=== PATIENT | male | born 1960 | race Caucasian/White ===

== ENCOUNTER → 2017-02-07 | Outpatient (CLI) | payer OTHER ==
[~2017-02-07] MED LIST: ALL300 PO; AMLO10TA4 PO; ASPI81TA28 PO; FURO-85 PO; HYDR-5688 PO; IBUP600T44 PO; INSDGI SC; INSDGIPEN SC; INSU32MI13 SQ; MRN5 PO; MULT1PAK PO; NVLGIPEN SC; OPTIRAY 320 IV PRN; TRAM-10 PO; [UNRECOGNIZED DRUG - CODE]; [UNRECOGNIZED DRUG - CODE]; [UNRECOGNIZED DRUG - OTHER]; [UNRECOGNIZED DRUG - OTHER]
--- NOTE | 2017-02-07 15:08 | DIAGNOSTIC IMAGING REPORT ---
CHEST CT WITH CONTRAST CT DOSE: 1728.08 mGy.cm HISTORY: Lymphoma HODGKIN LYMPHOMA TECHNIQUE: Multiaxial CT images of the chest were performed following the intravenous administration of contrast. COMPARISON: 07/04/2016 FINDINGS: Unchanged exam. Lungs remain clear. Hilar and mediastinal regions are negative for significant adenopathy. Left axillary adenopathy is stable and nonprogressive. There is no evidence for new interval or progressive harshad process within the high left axilla. The right axilla is clear. Osseous structures are negative for an acute bony abnormality. There is no lytic or blastic process. IMPRESSION: 1. Generally stable CT chest compared to the prior exam.. 2. Left axillary adenopathy is unchanged with no evidence for new interval or progressive process. 3. The lungs remain clear. No significant mediastinal or hilar adenopathy. Electronically signed by: Franklyn Oconnor M.D. 02/07/2017 3:07 PM Dictated Date/Time: 02/07/2017 3:02 PM
--- NOTE | 2017-02-07 15:14 | DIAGNOSTIC IMAGING REPORT ---
CT OF THE ABDOMEN AND PELVIS WITH CONTRAST CLINICAL HISTORY: Lymphoma. COMPARISON STUDY: CT of the abdomen and pelvis July 04, 2016 TECHNIQUE: Following IV administration of 93 mL of Optiray-320, axial images of the abdomen and pelvis were obtained from the lung bases to the proximal femurs. Images were reviewed in the axial, sagittal, and coronal planes. IV contrast was administered without complication. Oral contrast was administered. FINDINGS: The chest will be reported separately. No hepatic lesions are identified on this exam. The size of the spleen is normal. The adrenal glands and kidneys are unremarkable. Mild bilateral perinephric infiltration is unchanged. A few right renal calculi measure up to 5 mm. There are no ureteral calculi. There is no hydronephrosis. A few mildly enlarged peripancreatic/aortocaval lymph nodes are similar to exam of July 04, 2016. These measure up to 1.2 cm in short axis diameter. No additional enlarged lymph nodes are identified within the abdomen or the pelvis. There is no evidence for a bowel obstruction. No suspicious osseous lesions are present. There is no ascites. IMPRESSION: 1. No change since CT of July 04, 2016. Stable mild peripancreatic/aortocaval lymphadenopathy. No evidence of progressive lymphadenopathy within the abdomen or pelvis. 2. Right sided nephrolithiasis. Electronically signed by: Warren Castaneda M.D. 02/07/2017 3:13 PM Dictated Date/Time: 02/07/2017 3:05 PM
== END | disposition home or self-care (01) ==
LOC: C.CTS 13:02
PROVIDERS: ATTEND Nurse Practitioner
DX: C81.70 Other Hodgkin lymphoma, unspecified site (principal); N20.0 Calculus of kidney

== ENCOUNTER → 2017-05-23 | Day surgery (SDC) | payer OTHER ==
[2017-05-11 14:35] VITALS: BMI 19.0
[~2017-05-23] VITALS: Ht 198.1 cm; Wt 123.0 kg
[~2017-05-23] MED LIST changes: +ATROPINE SULFATE 0.1 MG/ML 5ML SYR IV PRN; +CEFAZOLIN 2000 MG/60 ML D5W IV SCH; +CEFAZOLIN 3000 MG/65 ML D5W IV SCH; +EpHEDrine SULFATE INJ 50 MG/ML AMP IV PRN; +FENTANYL CITRATE INJ 50 MCG/1 ML 2 ML VIAL IV PRN; +FENTANYL CITRATE INJ 50 MCG/1 ML 2 ML VIAL ONE; +FLUMAZENIL 0.1 MG/1 ML 10 ML VIAL IV PRN; -FURO-85 PO; +HYDROCODONE/ACETAMOPHEN 5/325MG TAB PO PRN; +HYDROmorphone INJ 2 MG/ML SYR/VIAL IV PRN; -INSDGIPEN SC; -INSU32MI13 SQ; +LABETALOL HCL IV 5 MG/ML 20ML IV PRN; +LACTATED RINGER'S 1000ML 1,000 ML IV SCH; +LIDOCAINE HCL 1% 20 ML VIAL ONE; +LIDOCAINE HCL 2% 2 ML VIAL (20MG/ML) ONE; +MEPERIDINE HCL 25 MG/ML CARP IV PRN; +MIDAZOLAM HCL 1 MG/ML 2ML VIAL ONE; -MRN5 PO; +NALOXONE HCL 0.4 MG/1 ML VIAL/CARP IV PRN; +ONDANSETRON INJ 2 MG/ML 2 ML VIAL IV PRN; +ONDANSETRON INJ 2 MG/ML 2 ML VIAL ONE; -OPTIRAY 320 IV PRN; +PHENYLEPHRINE 100MCG/ML 5ML SYR IV PRN; +PROPOFOL IV EMULSION 10 MG/ML 20 ML VIAL IV ONE; +SODIUM CHLORIDE 0.9% 1000ML 1,000 ML IV SCH; -[UNRECOGNIZED DRUG - CODE]; -[UNRECOGNIZED DRUG - CODE]; -[UNRECOGNIZED DRUG - OTHER]; -[UNRECOGNIZED DRUG - OTHER]
[2017-05-23 06:39] VITALS: Ht 198.1 cm; Wt 123.0 kg
--- NOTE | 2017-05-23 06:59 | History & Physical Bridge - SC ---
H&P Re-Evaluation Bridge Note: I have examined the patient, reviewed the History & Physical and in the interval since the performance of the History & Physical I have noted the following changes of clinical significance: No changes noted
[2017-05-23 07:26] VITALS: TEMP 36.3
--- NOTE | 2017-05-23 07:32 | Discharge Instructions-SurgCtr ---
Discharge Instructions Date of Service May 23, 2017. Visit Reason for Visit: Hodgkin's Discharge Discharge Diagnosis / Problem: port removal Discharge Goals Goal(s): Decrease discomfort, Improve function, Improve disease control Medications Stopped Medications Name(s): Aspirin stopped 7 days ago Activity Recommendations Activity Limitations: as noted below Lifting Limitations: no more than 25 pounds Exercise/Sports Limitations: until after follow-up appointment May Resume Sexual Activity: when tolerated Shower/Bathe: tomorrow Driving or Machine Use: resume 1 day after discharge SPECIAL CARE INSTRUCTIONS: * Cover incisions and change daily for comfort/drainage. * May use ibuprofen for pain as tolerated. * Expect some swelling and bruising. Call your doctor if: * Temperature above 101 degrees * Pain not relieved by pain medicine ordered * There is increased drainage or redness from any incision * You have any unanswered questions or concerns [phone]. FOLLOW UP VISIT: If not already scheduled, please call the office for a follow-up visit. for 2 weeks- suture removal OFFICE PHONE NUMBER: Dr. Kaplan Office Anesthesia . Post Anesthesia Instructions: If you have had General Anesthesia or IV Sedation: * Do not drive today. * Resume driving when surgeon permits. * Do not make important decisions or sign legal documents today. * Call surgeon for: 1. Temperature elevations greater than 101 degrees F. 2. Uncontrollable pain. 3. Excessive bleeding. 4. Persistent nausea and vomiting. 5. Medication intolerance (nausea, vomiting or rash). * For nausea and vomiting use only clear liquids such as: tea, soda, bouillon until nausea subsides, then gradually increase diet as tolerated. * If you have any concerns or questions, call your surgeon's office. If physician is unavailable and it is an emergency, call 911 or go to the nearest emergency room. . Diet Recommendations Home Diet: resume previous diet Procedures Procedures Performed: Infusaport Removal Pending Studies Studies pending at discharge: no Medical Emergencies . Who to Call and When: Medical Emergencies: If at any time you feel your situation is an emergency, please call 911 immediately. . Non-Emergent Contact Non-Emergency issues call your: Primary Care Provider, Surgeon . . "Provider Documentation" section prepared by Segun Kaplan. .
--- NOTE | 2017-05-23 07:33 | [facility] Operative Report ---
Operative Report Operative Date May 23, 2017. Pre-Operative Diagnosis A-Port for Hodgenkins lyphoma Post-Operative Diagnosis same as pre-op Procedure(s) Performed Infusaport Removal Surgeon Dr. Kaplan Surgical Aide Surgeon(s) none Estimated Blood Loss 5ml Findings port Lt chest Specimens A. Explanted A-Port Anesthesia local/ sedation Complication(s) None Disposition Recovery Room / PACU Description of Procedure Patient was brought in the operating room placed in the operating room table in supine position. His left upper chest was prepped and draped in usual fashion. 1% plain lidocaine was used to anesthetize skin and subcutaneous tissue. Scissors was made through previous scar carried dissection down identifying the port. Port was dissected from surrounding tissue and then the catheter and port removed. Tunnel was oversewn using 2-0 chromic catgut suture. Deep tissues reapproximated using 2-0 chromic suture. Skin was reapproximated using interrupted 4-0 nylon. A dressing was applied and patient taken to the recovery area in stable condition. I attest to the content of the Intraoperative Record and any orders documented therein. Any exceptions are noted below.
--- NOTE | 2017-05-23 07:55 | Anesthesia Progress Nt - [facility] ---
Anesthesia Post Op Note Date & Time May 23, 2017 at 07:55 Vital Signs Pain Intensity: 0 Vital Signs Past 12 Hours Date Time Temp Pulse Resp B/P (MAP) Pulse Ox O2 Delivery O2 Flow Rate FiO2 05/23/17 07:26 36.3 61 16 107/57 (74) 95 Room Air 05/23/17 06:26 36.8 68 16 158/88 (111) 96 Room Air Notes Mental Status: alert / awake / arousable, participated in evaluation Pt Amnestic to Procedure: Yes Nausea / Vomiting: adequately controlled Pain: adequately controlled Airway Patency, RR, SpO2: stable & adequate BP & HR: stable & adequate Hydration State: stable & adequate Anesthetic Complications: no major complications apparent
[2017-05-23 08:01] VITALS: BP 121/71; PULSE 62; O2SAT 95
== END | disposition home or self-care (01) ==
LOC: X.SURG 06:12
PROVIDERS: ATTEND Surgery
DX: Z95.828 Presence of other vascular implants and grafts (principal); Z85.71 Personal history of Hodgkin lymphoma; Z79.82 Long term (current) use of aspirin; M06.9 Rheumatoid arthritis, unspecified; G62.0 Drug-induced polyneuropathy; N18.3 Chronic kidney disease, stage 3 (moderate); E78.5 Hyperlipidemia, unspecified; I12.9 Hypertensive chronic kidney disease with stage 1 through stage 4 chronic kidney disease, or unspecified chronic kidney disease; E11.9 Type 2 diabetes mellitus without complications; N20.0 Calculus of kidney; Z80.0 Family history of malignant neoplasm of digestive organs; Z83.3 Family history of diabetes mellitus; Z84.1 Family history of disorders of kidney and ureter; Z82.49 Family history of ischemic heart disease and other diseases of the circulatory system; F17.200 Nicotine dependence, unspecified, uncomplicated; Z79.4 Long term (current) use of insulin; Z87.442 Personal history of urinary calculi

== ENCOUNTER → 2017-08-31 | Outpatient (CLI) | payer OTHER ==
[~2017-08-31] MED LIST changes: -ATROPINE SULFATE 0.1 MG/ML 5ML SYR IV PRN; -CEFAZOLIN 2000 MG/60 ML D5W IV SCH; -CEFAZOLIN 3000 MG/65 ML D5W IV SCH; -EpHEDrine SULFATE INJ 50 MG/ML AMP IV PRN; -FENTANYL CITRATE INJ 50 MCG/1 ML 2 ML VIAL IV PRN; -FENTANYL CITRATE INJ 50 MCG/1 ML 2 ML VIAL ONE; -FLUMAZENIL 0.1 MG/1 ML 10 ML VIAL IV PRN; -HYDROCODONE/ACETAMOPHEN 5/325MG TAB PO PRN; -HYDROmorphone INJ 2 MG/ML SYR/VIAL IV PRN; -LABETALOL HCL IV 5 MG/ML 20ML IV PRN; -LACTATED RINGER'S 1000ML 1,000 ML IV SCH; -LIDOCAINE HCL 1% 20 ML VIAL ONE; -LIDOCAINE HCL 2% 2 ML VIAL (20MG/ML) ONE; -MEPERIDINE HCL 25 MG/ML CARP IV PRN; -MIDAZOLAM HCL 1 MG/ML 2ML VIAL ONE; -NALOXONE HCL 0.4 MG/1 ML VIAL/CARP IV PRN; -ONDANSETRON INJ 2 MG/ML 2 ML VIAL IV PRN; -ONDANSETRON INJ 2 MG/ML 2 ML VIAL ONE; +OPTIRAY 320 IV PRN; -PHENYLEPHRINE 100MCG/ML 5ML SYR IV PRN; -PROPOFOL IV EMULSION 10 MG/ML 20 ML VIAL IV ONE; -SODIUM CHLORIDE 0.9% 1000ML 1,000 ML IV SCH
[2017-08-31 16:13] LABS: ISTAT CREATININE 1.2 mg/dl (0.6-1.3); ISTAT HEMOGLOBIN 13.9 g/dl (14.0-18.0); ISTAT IONIZED CALCIUM 1.27 mmol/l (1.12-1.32)
--- NOTE | 2017-08-31 16:35 | DIAGNOSTIC IMAGING REPORT ---
CT OF THE CHEST WITH IV CONTRAST CLINICAL HISTORY: Hodgkin's lymphoma COMPARISON STUDY: Chest CT January 30, 2017. TECHNIQUE: Following IV administration of 119 mL of Optiray-320, helical axial images of the chest were obtained. Sagittal and coronal reconstructions were viewed as well as maximal intensity projections on an independent 3-D workstation. A dose lowering technique was utilized adhering to the principles of ALARA. CT DOSE: 2030.52 mGycm FINDINGS: Several mildly enlarged left axillary lymph nodes are similar to exam of February 07, 2017. Calcification is noted within several these lymph nodes. The largest is a hypodense 1.7 cm round lymph node shown on axial image 78 of 346. The size of the heart is normal. There is no pericardial effusion. This extensive coronary artery calcification. Mild dilatation of the ascending aorta, measuring 4 cm is unchanged. There is no thoracic aortic dissection. Elevation of the right hemidiaphragm is unchanged. There are no suspicious pulmonary nodules. No suspicious osseous lesions are shown within the bony thorax. The abdomen and pelvis will be reported separately. IMPRESSION: 1. No change in mildly enlarged left axillary lymph nodes since CT of February 07, 2017. This likely reflects treated lymphoma. 2. No progressive lymphadenopathy within the chest. 3. No acute intrathoracic findings. 4. Extensive coronary artery calcification. Mild dilatation of the ascending aorta without thoracic aortic dissection. Electronically signed by: Warren Castaneda M.D. 08/31/2017 4:34 PM Dictated Date/Time: 08/31/2017 4:24 PM
--- NOTE | 2017-08-31 17:04 | DIAGNOSTIC IMAGING REPORT ---
CT OF THE ABDOMEN AND PELVIS WITH CONTRAST CLINICAL HISTORY: Lymphoma. COMPARISON STUDY: CT of the abdomen and pelvis January 30, 2017. TECHNIQUE: Following IV administration of 119 mL of Optiray-320, axial images of the abdomen and pelvis were obtained from the lung bases to the proximal femurs. Images were reviewed in the axial, sagittal, and coronal planes. IV contrast was administered without complication. A dose lowering technique was utilized adhering to the principles of ALARA. Oral contrast was administered. FINDINGS: The chest CT will be reported separately. The liver, spleen, adrenal glands and left kidney are normal. There is a 5 mm right renal calculus. There is no hydronephrosis. There are no ureteral calculi. There is no peripancreatic infiltration. No biliary or pancreatic ductal dilatation is present. There has been slight decrease in size of mildly enlarged peripancreatic/aortocaval lymph node since exam of January 30, 2017. An index aortocaval lymph node shown image 151 of 566 measures 1.1 cm in short axis diameter. It previously measured 1.2 cm. There is no pelvic lymphadenopathy. No suspicious osseous lesion is identified within visualized skeletal structures. There is no bowel wall thickening. The appendix is normal. There is extensive atherosclerotic plaque of the abdominal aorta. There is no interval dilatation. IMPRESSION: 1. Slight decrease in size of mildly enlarged upper abdominal lymph nodes since CT of February 07, 2017. No progressive lymphadenopathy within the abdomen or pelvis. 2. 5 mm right renal calculus. No ureteral calculi. Electronically signed by: Warren Castaneda M.D. 08/31/2017 5:02 PM Dictated Date/Time: 08/31/2017 4:51 PM
== END | disposition home or self-care (01) ==
LOC: C.CTS 13:35
PROVIDERS: ATTEND Internal Medicine Hematology & Oncology
DX: C81.70 Other Hodgkin lymphoma, unspecified site (principal)

== ENCOUNTER → 2018-02-16 | Day surgery (SDC) | payer OTHER ==
[2017-12-21 08:07] VITALS: BMI 31.0
[~2018-02-16] VITALS: Ht 198.1 cm; Wt 124.5 kg
[~2018-02-16] MED LIST changes: -ALL300 PO; +ALLO300T2 PO; +AMLO-114 PO; -AMLO10TA4 PO; -HYDR-5688 PO; +LIDOCAINE HCL 2% 2 ML VIAL (20MG/ML) ONE; +MIDAZOLAM HCL 1 MG/ML 2ML VIAL ONE; +NVLG SC; -NVLGIPEN SC; -OPTIRAY 320 IV PRN; +PROPOFOL IV EMULSION 10 MG/ML 20 ML VIAL IV ONE; +SODIUM CHLORIDE 0.9% 500ML 500 ML IV ONE; -TRAM-10 PO
[2018-02-16 11:39] VITALS: Ht 198.1 cm; Wt 124.5 kg
--- NOTE | 2018-02-16 12:36 | Endo History and Physical ---
History & Physical Date of Service: Feb 16, 2018. Chief Complaint: SCREENING Referring Physician: DR. MARTINEZ ONOCOLOGIST DR. PRINCE History of Present Illness 57 yo CM who presents for screening colonoscopy. Past Medical History Diabetes, Arthritis, High Cholesterol, Sleep Apnea, Hypertension, Kidney Disease , Other Past Surgical History Hx Cardiac Surgery: No Hx Internal Defibrillator: No Hx Pacemaker: No Hx Abdominal Surgery: No Hx of Implantable Prosthesis: No Hx Post-Op Nausea and Vomiting: No Hx Cancer Surgery: Yes (PORT INSERTION AND REMOVAL, LYMPH NODE BIOPSY) Hx Thoracic Surgery: No Hx Orthopedic: Yes (LT KNEE SCOPE X3) Hx Urinary Tract Surgery: Yes (LITHOTRIPSY) Family History Colon CA Social History Smoking Status: Former Smoker Hx Substance Use: Yes (OCCASIONAL MARIJUANA) Hx Alcohol Use: Yes (QUIT 25 YEARS AGO/ALCOHOLISM) Allergies Coded Allergies: Oxycodone (Verified Adverse Reaction, Intermediate, agitation, 02/16/18) Current Medications Reported Home Medications Medications Dose Route/Sig Max Daily Dose Days Date Category Dose Instructions Novolog (Insulin Aspart) 100 Units/Ml Inj 1 Dose SC TIDM 12/21/17 Reported PER SLIDING SCALE Norvasc (Amlodipine Besylate) 10 Mg Tab 10 Mg PO QPM 12/21/17 Reported Zyloprim (Allopurinol) 300 Mg Tab 0.5 Tab PO QAM 12/21/17 Reported Lantus (Insulin Glargine) 100 Unit/Ml Inj 25 Units SC BID 05/11/17 Reported Motrin (Ibuprofen) 600 Mg Tab 600 Mg PO DAILY PRN 05/11/17 Reported PRN Aspirin Ec (Aspirin) 81 Mg Tab 81 Mg PO DAILY 01/01/16 Reported Vital Signs Weight (Kilograms): 124.55 Height (Feet): 6 Height (Inches): 6 Date Time Temp Pulse Resp B/P (MAP) Pulse Ox O2 Delivery O2 Flow Rate FiO2 02/16/18 12:05 36.4 73 18 156/75 (102) 95 Room Air Physical Exam General Appearance: WD/WN, no apparent distress Respiratory/Chest: Auscultation: breath sounds normal Cardiovascular: Heart Auscultation: RRR Abdomen: Bowel Sounds: normal Inspection & Palpation: soft, non-distended, no tenderness, guarding & rebound Assessment and Plan Assessment: 57 yo CM who presents for screening colonoscopy. Plan: Proceed with colonoscopy.
--- NOTE | 2018-02-16 14:33 | GI REPORT ---
Procedure Date: 02/16/2018 12:30 PM Procedure: Colonoscopy Indications: Screening for colorectal malignant neoplasm Medicines: Monitored Anesthesia Care Complications: No immediate complications. Estimated Blood Loss: Estimated blood loss: none. Procedure: Pre-Anesthesia Assessment: - Prior to the procedure, a History and Physical was performed, and patient medications and allergies were reviewed. The patient's tolerance of previous anesthesia was also reviewed. The risks and benefits of the procedure and the sedation options and risks were discussed with the patient. All questions were answered, and informed consent was obtained. Prior Anticoagulants: The patient has taken aspirin, last dose was 1 day prior to procedure. ASA Grade Assessment: III - A patient with severe systemic disease. After reviewing the risks and benefits, the patient was deemed in satisfactory condition to undergo the procedure. After I obtained informed consent, the scope was passed under direct vision. Throughout the procedure, the patient's blood pressure, pulse, and oxygen saturations were monitored continuously. The Scope was introduced through the anus and advanced to the terminal ileum. The colonoscopy was performed without difficulty. The patient tolerated the procedure well. The quality of the bowel preparation was good. The terminal ileum, ileocecal valve, appendiceal orifice, and rectum were photographed. Findings: The perianal and digital rectal examinations were normal. A 5 mm polyp was found in the ascending colon. The polyp was sessile. The polyp was removed with a hot snare. Resection and retrieval were complete. Non-bleeding internal hemorrhoids were found during retroflexion. The hemorrhoids were small. Impression: - One 5 mm polyp in the ascending colon, removed with a hot snare. Resected and retrieved. - Non-bleeding internal hemorrhoids. Recommendation: - Resume previous diet. - Continue present medications. - Repeat colonoscopy for surveillance based on pathology results. - Return to primary care physician as previously scheduled. Feliberto Fisher DO 02/16/2018 2:32:30 PM This report has been signed electronically. Note Initiated On: 02/16/2018 12:30 PM I attest to the content of the Intraoperative Record and orders documented therein, exceptions below
[2018-02-16 15:05] VITALS: BP 126/74; PULSE 77; O2SAT 93
--- NOTE | 2018-02-16 15:09 | Anesthesiology Progress Note ---
Anesthesia Post Op Note Date & Time Feb 16, 2018 at 15:09 Vital Signs Pain Intensity: 0 Vital Signs Past 12 Hours Date Time Temp Pulse Resp B/P (MAP) Pulse Ox O2 Delivery O2 Flow Rate FiO2 02/16/18 15:05 77 20 126/74 (91) 93 Room Air 02/16/18 14:49 72 18 121/72 (88) 96 Room Air 02/16/18 14:36 71 16 109/63 (78) 95 Room Air 02/16/18 12:05 36.4 73 18 156/75 (102) 95 Room Air Notes Mental Status: alert / awake / arousable, participated in evaluation Pt Amnestic to Procedure: Yes Nausea / Vomiting: adequately controlled Pain: adequately controlled Airway Patency, RR, SpO2: stable & adequate BP & HR: stable & adequate Hydration State: stable & adequate Anesthetic Complications: no major complications apparent
--- NOTE | 2018-02-16 15:11 | Discharge Instructions ---
Endoscopy Patient Instructions Date / Procedure(s) Performed Feb 16, 2018. Colonoscopy Allergy Information Coded Allergies: Oxycodone (Verified Adverse Reaction, Intermediate, agitation, 02/16/18) Discharge Date / Findings Feb 16, 2018. Colon polyp Diverticulosis Internal hemorrhoids Medication Instructions Stopped Medication(s): 1/2 INSULIN OK to resume all medications today as prescribed Reported Home Medications Medications Dose Route/Sig Max Daily Dose Days Date Category Dose Instructions Novolog (Insulin Aspart) 100 Units/Ml Inj 1 Dose SC TIDM 12/21/17 Reported PER SLIDING SCALE Norvasc (Amlodipine Besylate) 10 Mg Tab 10 Mg PO QPM 12/21/17 Reported Zyloprim (Allopurinol) 300 Mg Tab 0.5 Tab PO QAM 12/21/17 Reported Lantus (Insulin Glargine) 100 Unit/Ml Inj 25 Units SC BID 05/11/17 Reported Motrin (Ibuprofen) 600 Mg Tab 600 Mg PO DAILY PRN 05/11/17 Reported PRN Aspirin Ec (Aspirin) 81 Mg Tab 81 Mg PO DAILY 01/01/16 Reported Provider Instructions Activity Restrictions - No exercising or heavy lifting for 24 hours. - Do not drink alcohol the day of the procedure. - Do not drive a car or operate machinery until the day after the procedure. - Do not make any important decisions or sign important papers in 24 hours after the procedure. Following Day: - Return to full activity which may include returning to work/school. Diet Start your diet with liquids and light foods (jello, soup, juice, toast). Then eat your usual diet if not nauseated. Treatment For Common After Affects For mild abdominal pain, bloating, or excessive gas: - Rest - Eat lightly - Lie on right side Follow-Up Information Follow-up with DR. MARTINEZ ONOCOLOGIST DR. PRINCE as scheduled Anesthesia Information What You Should Know You have had a procedure that required some medicine to reduce anxiety and discomfort. This treatment is called moderate sedation. After receiving the treatment, you may be sleepy, but you will be able to breathe on your own. The effects of the treatment may last for several hours. Follow these instructions along with Activity/Diet recommendations noted above: * Do NOT do anything where dizziness or clumsiness would be dangerous. * Rest quietly at home today, then you can be up and about tomorrow. * Have a responsible person stay with you the rest of today. * You may have had an I.V. today. If so, you may take the dressing off later today. Recommendations Call your doctor if: * Trouble breathing * Continuous vomiting for more than 24 hours * Temperature above 101 degrees * Severe abdominal pain or bloating * Pain not relieved by pain medicine ordered * There is increased drainage or redness from any incision * A large amount of rectal bleeding greater than 2-3 tablespoons. (If you had a polyp/s removed or have hemorrhoids, a small amount of blood - from the rectum is to be expected.) * You have any unanswered questions or concerns. IN THE EVENT OF A SERIOUS EMERGENCY, GO TO THE NEAREST EMERGENCY ROOM Your discharge instructions were prepared by provider Feliberto Fisher. Patient Instructions Signature Page Jonnathan Richardson Patient (or Guardian) Signature/Date: I have read and understand the instructions given to me by my caregivers. Caregiver/RN/Doctor Signature/Date: The above-named patient and/or guardian has received patient instructions on this date. + Original Patient Signature Page (only) stays with chart. Please make copy for patient.
== END | disposition home or self-care (01) ==
LOC: EDSTATUS 09:45 → C.GI 11:09
PROVIDERS: ATTEND Internal Medicine
DX: Z12.11 Encounter for screening for malignant neoplasm of colon (principal); D12.2 Benign neoplasm of ascending colon; K64.8 Other hemorrhoids; I10 Essential (primary) hypertension; E11.9 Type 2 diabetes mellitus without complications; Z87.891 Personal history of nicotine dependence; Z98.890 Other specified postprocedural states; Z79.4 Long term (current) use of insulin; Z79.82 Long term (current) use of aspirin; Z88.6 Allergy status to analgesic agent; Z85.71 Personal history of Hodgkin lymphoma; Z80.0 Family history of malignant neoplasm of digestive organs

== ENCOUNTER 2022-07-07 18:56 | Inpatient (IN) ==
--- NOTE | 2022-07-07 19:32 | History & Physical Report ---
Date of Service July 07, 2022 Assessment & Plan (1) Diabetic foot ulcer: Plan: Betadine or dry bandage to cover the wound. Ambulate as tolerated in post op shoe. (2) Acute osteomyelitis involving ankle and foot: Plan: Had xrays at clinic with acute findings of osteomyelitis. NPO after midnight for partial hallux amputation tomorrow morning (07/08/22). Spoke with houseman and will know start time tomorrow morning. Recommend Labs, ESR, CRP, CBC, CMP, blood cultures. IV antibiotics per medicine, or recommend ( Vanc and Zosamra). Thank you for this consultation. Office # [phone]. (3) Cellulitis and abscess of right leg: Plan: . History of Present Illness Chief Complaint: Diabetic foot ulceration Primary Care Provider: Valdemar Fabian DO Patient presented to my clinic today with worsening ulceration to his right great toe. States that the ulceration started about a month ago. States he was treating the ulcer himself. States his blood sugars have been over 200 the last two days. States within the past day, the ulcer is worse. Reports redness ascending up his right foot. Reports feeling tired and low grade fever, but denies nausea, vomiting, chills. In clinic today, the ulcer had purulent drainage and probed to bone. On xray, acute findings of osteomyelitis were noted with cortical lysis and resorption of bone at the level of hallux IPJ. Advised the patient to report to the emergency department for labs (CBC, CMP, ESR, CRP, blood cultures), IV antibiotics, and discussed partial hallux amputation vs IV antibiotics. Patient stated he would want surgical intervention to address this diabetic ulceration with underlying osteomyelitis. Allergies Allergy/AdvReac Type Severity Reaction Status Date / Time acetaminophen [From Percocet] Allergy Unknown Verified 03/29/22 08:58 oxycodone AdvReac Intermediate agitation Verified 03/29/22 08:58 Home Medications Medication Instructions Recorded Confirmed Type levothyroxine 50 mcg capsule 50 mcg PO DAILY #90 caps 10/14/19 03/29/22 Rx amlodipine 10 mg tablet 10 mg PO DAILY 01/14/20 03/29/22 History aspirin 81 mg tablet,delayed 81 mg PO DAILY 01/14/20 03/29/22 History release (Adult Low Dose Aspirin) atorvastatin 40 mg tablet 40 mg PO DAILY 01/14/20 03/29/22 History insulin aspart U-100 100 unit/mL 5 units subcut TID 01/14/20 03/29/22 History (3 mL) subcutaneous pen (Novolog Flexpen U-100 Insulin aspart) insulin glargine 100 unit/mL 100 units subcut DAILY 01/14/20 03/29/22 History subcutaneous solution (Lantus U-100 Insulin) coenzyme Q10 100 mg capsule 100 mg PO DAILY 10/05/21 03/29/22 History (CoQ-10) lisinopril 20 mg tablet 20 mg PO DAILY 10/05/21 03/29/22 History metoprolol tartrate 75 mg tablet 75 mg PO BID 10/05/21 03/29/22 History ftnzgnmhbbpv-vxnhzbv-ydyat acid tab PO 10/05/21 03/29/22 History 500 mcg-vitamin K 10 mcg tablet hydrochlorothiazide 25 mg tablet 25 mg PO DAILY #90 tabs 01/13/22 03/29/22 Rx cholecalciferol (vitamin D3) 50 50 mcg PO DAILY #90 caps 07/05/22 Rx mcg (2,000 unit) capsule Past Med/Surg History Medical History Accelerated hypertension Calcium kidney stone Diabetes mellitus, type 2 Hodgkin lymphoma Family History Other Coronary heart disease Social History Smoking Status: Former smoker Tobacco Type: Cigarettes Preferred Language: Croatian marital status: Current Living Situation: Spouse Feels Safe at Home: Yes Review of Systems All systems reviewed & are unremarkable except as noted in HPI & below as per Subjective / HPI Physical Exam Physical Exam: Ulceration noted to right plantar medial hallux IPJ. Purulent drainage noted. Probes to bone. Ascending cellulitis to the level of the ankle. Constitutional: WD/WN, vitals as above Eyes: PERRL, conjunctivae normal, anicteric sclerae ENMT: external ear and nose normal, oropharynx normal Neck: trachea midline, no thyromegaly Respiratory: normal respiratory effort, lungs clear to auscultation Cardiovascular: Rate/Rhythm: regular rate and regular rhythm Vessels: posterior tibial pulses present (diminished) and dorsalis pedis pulses present (diminished) Gastrointestinal (Abdomen): Inspection/Auscultation: abdomen normal to inspection Musculoskeletal: Extremities: extremities normal to inspection and strength 5/5 throughout Skin: + ulcer Neurologic: Motor/Sensory: + sensory deficit Psychiatric: A+Ox3, euthymic affect
[2022-07-07] MEDS ORDERED: PIPERACILLIN/TAZOBACTAM 4.5 GM/120 ML BAG IV ONE (20:59)
[2022-07-07] MEDS ORDERED: VANCOMYCIN HCL 2,500 MG in SODIUM CHLORIDE 0.9% 500 ML IV ONE (20:59)
[2022-07-07] MEDS ORDERED: VANCOMYCIN CONSULT ACTIVE PRN (20:59)
--- NOTE | 2022-07-07 21:17 | Emergency Department Note ---
Impression & Plan Diabetic infection of right foot, Osteomyelitis ED Provider Note Provider: Gilson Oliveira MD DATE OF SERVICE: 07/07/2022 CHIEF COMPLAINT: Right foot infection HISTORY OF PRESENT ILLNESS: Patient is a 61-year-old gentleman diabetic referred by podiatry today to worsening infection of his right foot. Centered around the right great toe. Developing over the last several days with prior history. States 2 out of 10 pain. States maybe took a dose of Keflex this morning. Denies fever today but several days ago. Patient states a distant history of chemotherapy. Podiatry recommended command for operative management tomorrow and IV antibiotics. REVIEW OF SYSTEMS: A total of 10 review of systems was obtained and negative except as stated above in the HPI. PAST MEDICAL HISTORY: As noted above MEDICATIONS: Reviewed home medication list SOCIAL HISTORY: Former smoker PHYSICAL EXAM: GENERAL: alert and oriented in no acute distress on stretcher, large delgadillo Head: normocephalic and atraumatic EYES: No injection, discharge or icterus. NECK: Trachea midline. Supple. ENT: Mucous membranes pink and moist. LUNGS: Airway patent. No retractions or work of breathing. HEART: Regular rate and rhythm. ABDOMEN: Soft nondistended SKIN: Acyanotic, warm, dry with erythema of the right foot as below. EXTREMITIES: Decree sensation below the knees bilaterally. There is erythema swelling and tenderness of the right great toe extending over the distal right foot without significant bullae or crepitus noted. NEUROLOGICAL: No aphasia. No facial droop or slurred speech. Decree sensation below the legs he states is at baseline Patient's laboratory studies reviewed. Differential includes Cellulitis, abscess, MRSA infection, DVT, necrotizing fasciitis, dermatitis, drug eruption, allergic reaction, as well as other pathologies. IMPRESSION/MEDICAL DECISION MAKING: Patient referred by podiatry who saw him in the emergency department and recommended admission for OR case tomorrow for debridement. X-ray reportedly as an outpatient showed osteomyelitis. Blood cultures and labs ordered. Given vancomycin and Zosyn for broad coverage given his history of diabetes. Does not appear to be necrotizing fasciitis and I doubt sepsis at this point. Patient was somewhat frustrated in the emergency department given the length of the wait due to the volume and acuity this evening in the ED. here he is elevated and creatinine is elevated compared to previous available from December of this year. Hospitalist contacted for admission. DIAGNOSIS: Right diabetic foot cellulitis and osteomyelitis DISPOSITION: Being evaluated by the hospitalist Past Med/Surg History Medical History Accelerated hypertension Calcium kidney stone Diabetes mellitus, type 2 Hodgkin lymphoma Family History Other Coronary heart disease Social History Smoking Status: Former smoker Tobacco Type: Cigarettes Preferred Language: [place] Zealander marital status: Current Living Situation: Spouse Feels Safe at Home: Yes Allergies Allergies Allergy/AdvReac Type Severity Reaction Status Date / Time acetaminophen [From Percocet] Allergy Unknown Verified 07/07/22 22:51 oxycodone AdvReac Intermediate agitation Verified 07/07/22 22:51 Home Meds Home Medications Medication Instructions Recorded Confirmed aspirin 81 mg tablet,delayed 81 mg PO DAILY 01/14/20 07/07/22 release (Adult Low Dose Aspirin) atorvastatin 40 mg tablet 40 mg PO DAILY 01/14/20 07/07/22 coenzyme Q10 100 mg capsule 100 mg PO DAILY 10/05/21 07/07/22 (CoQ-10) lisinopril 20 mg tablet 20 mg PO DAILY 10/05/21 07/07/22 metoprolol tartrate 75 mg tablet 75 mg PO BID 10/05/21 07/07/22 Alive Diabetic Multivitamin 1 tabs PO DAILY 07/07/22 07/07/22 insulin glargine 100 unit/mL (3 35 unit subcut BID 07/07/22 07/07/22 mL) subcutaneous pen (Lantus Solostar U-100 Insulin) insulin lispro 100 unit/mL 1 sliding scale dose subcut 07/07/22 07/07/22 subcutaneous pen USEASDIRECTD Previous Rx's Medication Instructions Recorded levothyroxine 50 mcg capsule 50 mcg PO DAILY #90 caps 10/14/19 hydrochlorothiazide 25 mg tablet 25 mg PO DAILY #90 tabs 01/13/22 cholecalciferol (vitamin D3) 50 50 mcg PO DAILY #90 caps 07/05/22 mcg (2,000 unit) capsule Results & Data (ED) Vital Signs Vital Signs - 24 hr 07/07/22 19:16 07/07/22 21:09 07/07/22 23:43 Temperature 36.2 C L Temperature Source Temporal Artery Scan Pulse Rate 90 67 Pulse Rate [Finger] 68 Pulse Rhythm [Finger] Regular Pulse Strength [Finger] Normal Respiratory Rate 18 20 18 Respiratory Effort / Characteristics Non-Labored Spontaneous Non-Labored Respiratory Depth Normal Normal Respiratory Pattern Regular Blood Pressure 95/61 L 103/56 L Blood Pressure [Right Arm] 122/67 Blood Pressure Mean 72 Blood Pressure Mean [Right Arm] 85 Blood Pressure Position [Right Arm] Sitting Pulse Oximetry 93 96 94 Oxygen Delivery Method Room Air Room Air Room Air Sepsis Recent Fever Within 48 Hours Yes Sepsis New/Unexplained Change in Mental Status N/A Sepsis Action Taken by Nursing No Action Required Laboratory Data Result diagrams: 07/07/22 21:07 07/07/22 21:07 Lab Results 07/07/22 07/07/22 07/07/22 Range/Units 20:31 21:07 21:07 WBC 11.98 H (4.8-10.8) K/ul RBC 5.07 (4.63-6.08) M/uL Hgb 14.2 (14.0-18.0) g/dl Hct 44.1 (40.1-51.0) % MCV 87.0 (80.0-100.0) fL MCH 28.0 (25.0-34.0) pg MCHC 32.2 (32.0-36.0) g/dL RDW Std Deviation 40.3 (36.4-46.3) fL RDW Coeff of Calista 12.8 (11.5-14.5) % Plt Count 288 (130-400) K/uL MPV 10.7 (9.4-12.4) fL Immature Gran % (Auto) 0.8 % Neut % (Auto) 65.3 % Lymph % (Auto) 19.9 % [place] % (Auto) 10.9 % Eos % (Auto) 2.3 % Baso % (Auto) 0.8 % Neut # (Auto) 7.84 H (1.4-6.5) K/uL Lymph # (Auto) 2.39 (1.2-3.4) K/uL [place] # (Auto) 1.30 H (0.24-0.82) K/uL Eos # (Auto) 0.27 (0-0.50) K/uL Baso # (Auto) 0.09 (0-0.2) K/uL Immature Gran # (Auto) 0.09 H (0.00-0.02) K/uL ESR 57 H (0-20) mm/hr PT (9.0-12.0) Seconds INR (0.9-1.1) Sodium (136-145) mmol/L Potassium (3.5-5.1) mmol/L Chloride (98-107) mmol/L Carbon Dioxide (21-32) mmol/L Anion Gap (3-11) BUN (6-23) mg/dl Creatinine (0.6-1.4) mg/dl Est Cr Clr Drug Dosing ml/min Est GFR ( Amer) ml/min Est GFR (Non-Af Amer) ml/min BUN/Creatinine Ratio (10-20) Glucose (70-99(Fasting)) mg/dl Calcium (8.5-10.1) mg/dl Total Bilirubin (0.2-1.0) mg/dl Direct Bilirubin (0-0.2) mg/dl AST (13-39) U/L ALT (7-52) U/L Alkaline Phosphatase (34-104) U/L C-Reactive Protein (0-0.5) mg/dl Total Protein (6.0-8.3) gm/dl Albumin (3.4-5.0) gm/dl SARS-CoV-2, RNA, NAAT NEGATIVE (NEGATIVE) 07/07/22 07/07/22 Range/Units 21:07 21:07 WBC (4.8-10.8) K/ul RBC (4.63-6.08) M/uL Hgb (14.0-18.0) g/dl Hct (40.1-51.0) % MCV (80.0-100.0) fL MCH (25.0-34.0) pg MCHC (32.0-36.0) g/dL RDW Std Deviation (36.4-46.3) fL RDW Coeff of Calista (11.5-14.5) % Plt Count (130-400) K/uL MPV (9.4-12.4) fL Immature Gran % (Auto) % Neut % (Auto) % Lymph % (Auto) % [place] % (Auto) % Eos % (Auto) % Baso % (Auto) % Neut # (Auto) (1.4-6.5) K/uL Lymph # (Auto) (1.2-3.4) K/uL [place] # (Auto) (0.24-0.82) K/uL Eos # (Auto) (0-0.50) K/uL Baso # (Auto) (0-0.2) K/uL Immature Gran # (Auto) (0.00-0.02) K/uL ESR (0-20) mm/hr PT 11.4 (9.0-12.0) Seconds INR 1.1 (0.9-1.1) Sodium 132 L (136-145) mmol/L Potassium 4.5 (3.5-5.1) mmol/L Chloride 100 (98-107) mmol/L Carbon Dioxide 18 L (21-32) mmol/L Anion Gap 14 H (3-11) BUN 84 H (6-23) mg/dl Creatinine 2.84 H (0.6-1.4) mg/dl Est Cr Clr Drug Dosing 38.6 ml/min Est GFR ( Amer) 26.2 ml/min Est GFR (Non-Af Amer) 22.6 ml/min BUN/Creatinine Ratio 29.6 H (10-20) Glucose 169 H (70-99(Fasting)) mg/dl Calcium 10.1 (8.5-10.1) mg/dl Total Bilirubin 0.7 (0.2-1.0) mg/dl Direct Bilirubin 0.1 (0-0.2) mg/dl AST 16 (13-39) U/L ALT 16 (7-52) U/L Alkaline Phosphatase 68 (34-104) U/L C-Reactive Protein 10.74 H (0-0.5) mg/dl Total Protein 8.1 (6.0-8.3) gm/dl Albumin 4.3 (3.4-5.0) gm/dl SARS-CoV-2, RNA, NAAT (NEGATIVE) Administered Medications Discontinued Medications Vancomycin HCl 2,500 mg/ (Sodium Chloride) 550 mls @ 200 mls/hr IV NOW ONE Stop: 07/07/22 23:43 Last Admin: 07/07/22 22:39 Dose: 200 mls/hr Documented By: TASIA Piperacillin Sod/Tazobactam Sod (Zosyn) 4.5 gm in 120 mls @ 240 mls/hr IV NOW ONE Stop: 07/07/22 21:28 Last Admin: 07/07/22 21:54 Dose: 240 mls/hr Documented By: TASIA Discharge Plan Visit Data Chief Complaint: Referred by Doctor Stated Complaint: DIABETIC ULCER. REF FOR DIRECT ADMIT FOR SURGERY ED Provider: Gilson Oliveira Discharge Problem: Diabetic infection of right foot, Osteomyelitis Patient Disposition: Being Evaluated by Hospitalist Discharge Instructions Interventions: ED Discharge Assessment Last Done: 07/07/22 23:43 Forms Stand Alone Forms: DEMANDIT Prescriptions Prescriptions: No Action levothyroxine 50 mcg capsule 50 mcg PO DAILY Qty: 90 3RF hydrochlorothiazide 25 mg tablet 25 mg PO DAILY Qty: 90 3RF cholecalciferol (vitamin D3) 50 mcg (2,000 unit) capsule 50 mcg PO DAILY Qty: 90 3RF metoprolol tartrate 75 mg tablet 75 mg PO BID lisinopril 20 mg tablet 20 mg PO DAILY coenzyme Q10 [CoQ-10] 100 mg capsule 100 mg PO DAILY aspirin [Adult Low Dose Aspirin] 81 mg tablet,delayed release (DR/EC) 81 mg PO DAILY atorvastatin 40 mg tablet 40 mg PO DAILY Alive Diabetic Multivitamin tablet 1 tabs PO DAILY insulin lispro [Humalog Pen] 100 unit/mL Insulin Pen 1 sliding scale dose SUBCUT USEASDIRECTD insulin glargine [Lantus Solostar U-100 Insulin] 100 unit/mL (3 mL) insulin pen 35 unit SUBCUT BID Referrals Referrals: Valdemar Fabian DO [Primary Care Provider] - : Osteomyelitis Qualifiers: Osteomyelitis type: unspecified type Osteomyelitis location: foot Laterality: right Qualified Code(s): M86.9 - Osteomyelitis, unspecified
[2022-07-07 21:31] LABS: INR 1.1 (0.9-1.1); Prothrombin Time 11.4 Seconds (9.0-12.0)
[2022-07-07 21:46] LABS: Albumin Level 4.3 gm/dl (3.4-5.0); BUN Creatinine Ratio 29.6 (10-20); Bilirubin Direct 0.1 mg/dl (0-0.2); Bilirubin,Total 0.7 mg/dl (0.2-1.0); C Reactive Protein 10.74 mg/dl (0-0.5); Calcium 10.1 mg/dl (8.5-10.1); Creatinine Clr Calc Pharmacy 38.6 ml/min; Est GFR (African American) 26.2 ml/min; Est GFR (Non-African American) 22.6 ml/min; Potassium 4.5 mmol/L (3.5-5.1); Total Protein 8.1 gm/dl (6.0-8.3)
--- NOTE | 2022-07-07 21:46 | History & Physical Report ---
Date of Service July 07, 2022 Assessment & Plan (1) Diabetic infection of right foot: Plan: 61yo male with a history of IDDM2, HTN, HLD, and a remote history of Hodgkin lymphoma presents with a several-day history of worsening infection of his right foot, centered around the right great toe. Diabetic right great toe infection Admit to med/surg Started on vanc/zosyn Amputation in AM per podiatry note NPO Wound care per podiatry PT/OT LD Creatinine on admission 2.84 (baseline ~1.3) NSS @ 100mL/hr (x1 bag ordered) Trend BMP, avoid nephrotoxins, encourage PO intake when no longer NPO IDDM2 HbA1c 8.7% (12/2021) Patient's home regimen held on admission Continue BSG checks, sliding-scale insulin, hypoglycemic protocol Repeat HbA1c and lipid profile ordered HTN: home regimen held while NPO, restart when appropriate HLD: home regimen held while NPO, restart when appropriate FEN: NPO for morning procedure, Code status: full code DVT ppx: SVDs Isolation: contact Consults: podiatry PT/OT: ordered Dispo: med/surg (2) Diabetes mellitus, type 2: History of Present Illness Primary Care Provider: Valdemar Fabian, DO 61yo male with a history of IDDM2 and a remote history of Hodgkin lymphoma presents with a several-day history of worsening infection of his right foot, centered around the right great toe. Patient notes the toe was infected about a month ago, which improved with oral antibiotics, but then a few days ago came back and has been worsening. Pain is rated as a 2/10. No fever but patient had a fever a few days ago. Patient denies headache, vision changes, CP, palpitations, SOB, edema, abdominal pain, nausea, vomiting, dysuria, hematochezia, melena, lightheadedness, dizziness, numbness, tingling, weakness, or other symptoms. Denies recent illness and recent travel. Patient has a remote history of chemotherapy. Upon arrival, vitals were unremarkable. BP not elevated, no tachycardia or tachypnea, patient afebrile, spO2 adequate on room air. Initial labs were notable for mild leukocytosis (11.98), mild hyponatremia (132), elevated BUN (84) and creatinine (2.84), and elevated CRP (10.74). No anemia, platelets wnl, no other electrolyte abnormalities, LFTs wnl, covid negative. In the ED, patient was started on vanc/zosyn. Surrogate decision-maker in case of an emergency: Jennifer Richardson (cell: [phone]) Allergies Allergy/AdvReac Type Severity Reaction Status Date / Time acetaminophen [From Percocet] Allergy Unknown Verified 07/07/22 22:51 oxycodone AdvReac Intermediate agitation Verified 07/07/22 22:51 Home Medications Medication Instructions Recorded Confirmed Type levothyroxine 50 mcg capsule 50 mcg PO DAILY #90 caps 10/14/19 07/07/22 Rx aspirin 81 mg tablet,delayed 81 mg PO DAILY 01/14/20 07/07/22 History release (Adult Low Dose Aspirin) atorvastatin 40 mg tablet 40 mg PO DAILY 01/14/20 07/07/22 History coenzyme Q10 100 mg capsule 100 mg PO DAILY 10/05/21 07/07/22 History (CoQ-10) lisinopril 20 mg tablet 20 mg PO DAILY 10/05/21 07/07/22 History metoprolol tartrate 75 mg tablet 75 mg PO BID 10/05/21 07/07/22 History hydrochlorothiazide 25 mg tablet 25 mg PO DAILY #90 tabs 01/13/22 07/07/22 Rx cholecalciferol (vitamin D3) 50 50 mcg PO DAILY #90 caps 07/05/22 07/07/22 Rx mcg (2,000 unit) capsule Alive Diabetic Multivitamin 1 tabs PO DAILY 07/07/22 07/07/22 History insulin glargine 100 unit/mL (3 35 unit subcut BID 07/07/22 07/07/22 History mL) subcutaneous pen (Lantus Solostar U-100 Insulin) insulin lispro 100 unit/mL 1 sliding scale dose subcut 07/07/22 07/07/22 History subcutaneous pen USEASDIRECTD Past Med/Surg History Medical History Accelerated hypertension Calcium kidney stone Diabetes mellitus, type 2 Hodgkin lymphoma Family History Other Coronary heart disease Social History Smoking Status: Never smoker Tobacco Type: Cigarettes Do You Dip or Chew Tobacco: No; Hx Alcohol Use: No Hx Substance Use: No Preferred Language: Tajik Communication Ability: Effective Public Finance Specialist Required: No Beliefs That Will Affect Care: None marital status: Current Living Situation: Spouse Other Information That Helps Us Care for You: No Feels Safe at Home: Yes Safety Concerns: Feels Safe At This Time Assistive Devices: Special Shoe Physical Exam Physical Exam: Constitutional: well-appearing, no acute distress HEENT: NCAT, no conjunctival injection CV: regular rhythm, no murmur appreciated, extremities well-perfused, trace LE edema Resp: CTABL, no wheezes/rales/rhonchi appreciated, no increased work of breathing GI: soft, nondistended, nontender, BS normoactive Skin: erythema of the distal right foot, right great toe dressed Neuro: alert, oriented, no focal neurologic deficit appreciated Results & Data Results & Data ([facility]) Vital Signs (Past 12 Hours) Vital Signs Temp Pulse Pulse Resp BP BP Pulse Ox 07/07/22 21:09 68 20 122/67 96 07/07/22 19:16 36.2 C L 90 18 95/61 L 93 O2 Del Method 07/07/22 21:09 Room Air 07/07/22 19:16 Room Air Laboratory Results Laboratory Results WBC 11.98 K/ul (4.8-10.8) H 07/07/22 21:07 RBC 5.07 M/uL (4.63-6.08) 07/07/22 21:07 Hgb 14.2 g/dl (14.0-18.0) 07/07/22 21:07 Hct 44.1 % (40.1-51.0) 07/07/22 21:07 MCV 87.0 fL (80.0-100.0) 07/07/22 21:07 MCH 28.0 pg (25.0-34.0) 07/07/22 21:07 MCHC 32.2 g/dL (32.0-36.0) 07/07/22 21:07 RDW Std Deviation 40.3 fL (36.4-46.3) 07/07/22 21:07 RDW Coeff of Calista 12.8 % (11.5-14.5) 07/07/22 21:07 Plt Count 288 K/uL (130-400) 07/07/22 21:07 MPV 10.7 fL (9.4-12.4) 07/07/22 21:07 Immature Gran % (Auto) 0.8 % 07/07/22 21:07 Neut % (Auto) 65.3 % 07/07/22 21:07 Lymph % (Auto) 19.9 % 07/07/22 21:07 [place] % (Auto) 10.9 % 07/07/22 21:07 Eos % (Auto) 2.3 % 07/07/22 21:07 Baso % (Auto) 0.8 % 07/07/22 21:07 Neut # (Auto) 7.84 K/uL (1.4-6.5) H 07/07/22 21:07 Lymph # (Auto) 2.39 K/uL (1.2-3.4) 07/07/22 21:07 [place] # (Auto) 1.30 K/uL (0.24-0.82) H 07/07/22 21:07 Eos # (Auto) 0.27 K/uL (0-0.50) 07/07/22 21:07 Baso # (Auto) 0.09 K/uL (0-0.2) 07/07/22 21:07 Immature Gran # (Auto) 0.09 K/uL (0.00-0.02) H 07/07/22 21:07 ESR 57 mm/hr (0-20) H 07/07/22 21:07 PT 11.4 Seconds (9.0-12.0) 07/07/22 21:07 INR 1.1 (0.9-1.1) 07/07/22 21:07 Sodium 132 mmol/L (136-145) L 07/07/22 21:07 Potassium 4.5 mmol/L (3.5-5.1) 07/07/22 21:07 Chloride 100 mmol/L (98-107) 07/07/22 21:07 Carbon Dioxide 18 mmol/L (21-32) L 07/07/22 21:07 Anion Gap 14 (3-11) H 07/07/22 21:07 BUN 84 mg/dl (6-23) H 07/07/22 21:07 Creatinine 2.84 mg/dl (0.6-1.4) H 07/07/22 21:07 Est Cr Clr Drug Dosing 38.6 ml/min 07/07/22 21:07 Est GFR ( Amer) 26.2 ml/min 07/07/22 21:07 Est GFR (Non-Af Amer) 22.6 ml/min 07/07/22 21:07 BUN/Creatinine Ratio 29.6 (10-20) H 07/07/22 21:07 Glucose 169 mg/dl (70-99(Fasting)) H 07/07/22 21:07 POC Glucose 268 mg/dl (70-99) H 07/08/22 00:16 Calcium 10.1 mg/dl (8.5-10.1) 07/07/22 21:07 Total Bilirubin 0.7 mg/dl (0.2-1.0) 07/07/22 21:07 Direct Bilirubin 0.1 mg/dl (0-0.2) 07/07/22 21:07 AST 16 U/L (13-39) 07/07/22 21:07 ALT 16 U/L (7-52) 07/07/22 21:07 Alkaline Phosphatase 68 U/L (34-104) 07/07/22 21:07 C-Reactive Protein 10.74 mg/dl (0-0.5) H 07/07/22 21:07 Total Protein 8.1 gm/dl (6.0-8.3) 07/07/22 21:07 Albumin 4.3 gm/dl (3.4-5.0) 07/07/22 21:07 SARS-CoV-2, RNA, NAAT NEGATIVE (NEGATIVE) 07/07/22 20:31 Supervising Physician Co-Signing Physician Notes Patient seen and examined, chart reviewed, case discussed with Dr. Wills and I agree with the assessment and plan as above. Osteomyelitis right great toe Patient afebrile, HD stable. Does have leukocytosis, elevated inflammatory markers LD on CKD Exam with shallow based ulcer right great toe medial side with purulent drainage Redness and mild swelling of dorsum of foot No crepitus, bullae Prior X-ray with osteo Patient seen by Podiatry - will plan for OR debridement in AM Resident Activity Tracking Resident Involvement: Resident Care Provided and Talent Acquisition Administrator Coverage Note Care Provided: Adult Hospital Medicine
[2022-07-07 21:51] LABS: Basophils # (auto) 0.09 K/uL (0-0.2); Basophils % (auto) 0.8 %; Eosinophils # (auto) 0.27 K/uL (0-0.50); Eosinophils % (auto) 2.3 %; Hematocrit (blood only) 44.1 % (40.1-51.0); Hemoglobin 14.2 g/dl (14.0-18.0); Immature Granulocytes # (auto) 0.09 K/uL (0.00-0.02); Immature Granulocytes % (auto) 0.8 %; Lymphocytes # (auto) 2.39 K/uL (1.2-3.4); Lymphocytes % (auto) 19.9 %; Mean Corpuscular Hgb Conc 32.2 g/dL (32.0-36.0); Mean Platelet Volume 10.7 fL (9.4-12.4); Monocytes % (auto) 10.9 %; Neutrophils # (auto) 7.84 K/uL (1.4-6.5); Neutrophils % (auto) 65.3 %; Platelet Count 288 K/uL (130-400); RDW Coefficient of Variation 12.8 % (11.5-14.5); RDW Standard Deviation 40.3 fL (36.4-46.3); Red Blood Count 5.07 M/uL (4.63-6.08); White Blood Count 11.98 K/ul (4.8-10.8)
[2022-07-07] MEDS ORDERED: CARBOHYDRATES FOR HYPOGLYCEMIA PO PRN (22:57)
[2022-07-07] MEDS ORDERED: GLUCAGON FOR INJ 1 MG VIAL SQ PRN (22:57)
[2022-07-07] MEDS ORDERED: GLUCOSE 10 TAB/TUBE PO PRN (22:57)
[2022-07-07] MEDS ORDERED: DC ALL PREVIOUSLY ORDERED DIABETES MEDS ONE (22:57)
[2022-07-07] MEDS ORDERED: GLUCOSE 40% GEL 15 GM TUBE PO PRN (22:57)
[2022-07-07] MEDS ORDERED: DEXTROSE 50% 50 ML SYRINGE IV PRN (22:57)
[2022-07-07] MEDS ORDERED: SODIUM CHLORIDE 0.9% 1000ML 1,000 ML IV SCH (23:15)
[2022-07-08] MEDS ORDERED: MELATONIN 3 MG TAB PO PRN (00:47)
[2022-07-08] MEDS ORDERED: SODIUM CHLORIDE 0.9% 1000ML 1,000 ML IV SCH ×2 (00:47→17:00)
[2022-07-08] MEDS ORDERED: INSULIN ASPART PER UNIT ONE (01:10)
[2022-07-08] MEDS: INSULIN ASPART PER UNIT SC SCH ×5 (01:12→22:49)
--- NOTE | 2022-07-08 01:42 | Billing Data ---
Date of Service July 07, 2022 Coding Level of Care Code 77986 Initial Inpt Care Lvl 3
[2022-07-08] MEDS: PIPERACILLIN/TAZOBACTAM 3.375 GM in DEXTROSE 5% 100 ML IV SCH ×2 (03:46→13:52)
[2022-07-08] MEDS: LEVOTHYROXINE SODIUM 50 MCG TABLET PO SCH (05:54)
[2022-07-08] MEDS ORDERED: VANCOMYCIN HCL 1,000 MG in SODIUM CHLORIDE 0.9% 250 ML IV SCH (06:00)
--- NOTE | 2022-07-08 07:53 | Hospitalist Progress Note ---
Date of Service July 08, 2022 Assessment & Plan (1) Diabetic infection of right foot: Plan: 61yo male with a history of IDDM2, HTN, HLD, and a remote history of Hodgkin lymphoma presents with a several-day history of worsening infection of his right foot, centered around the right great toe. Diabetic right great toe infection Admit to med/surg Started on vanc/zosyn Amputation in AM per podiatry note NPO Wound care per podiatry PT/OT LD Creatinine on admission 2.84 (baseline ~1.3) NSS @ 100mL/hr (x1 bag ordered) Trend BMP, avoid nephrotoxins, encourage PO intake when no longer NPO IDDM2 HbA1c 8.7% (12/2021) Patient's home regimen held on admission Continue BSG checks, sliding-scale insulin, hypoglycemic protocol Repeat HbA1c and lipid profile ordered HTN: home regimen held while NPO, restart when appropriate HLD: home regimen held while NPO, restart when appropriate FEN: NPO for morning procedure, Code status: full code DVT ppx: SVDs Isolation: contact Consults: podiatry PT/OT: ordered Dispo: med/surg (2) Diabetes mellitus, type 2: Admission and Anticipated Discharge Date Admission Date: July 07, 2022 Results & Data Results & Data ([facility]) Vital Signs (Past 12 Hours) Vital Signs Temp Pulse Pulse Resp BP BP Pulse Ox 07/08/22 05:47 36.9 C 60 18 118/76 96 07/08/22 00:05 36.8 C 89 14 133/73 93 07/07/22 23:43 67 18 103/56 L 94 07/07/22 21:09 68 20 122/67 96 O2 Del Method 07/08/22 05:47 Room Air 07/08/22 00:05 Room Air 07/07/22 23:43 Room Air 07/07/22 21:09 Room Air Resident Activity Tracking Resident Involvement: Resident Care Provided Care Provided: Adult Hospital Medicine
[2022-07-08] MEDS ORDERED: PNEUMOCOCCAL POLYSACCHARIDES 25 MCG/0.5 ML VIAL/SYR IM ONE (08:00)
[2022-07-08 08:01] LABS: Hematocrit (blood only) 37.2 % (40.1-51.0); Hemoglobin 12.1 g/dl (14.0-18.0); Mean Corpuscular Hemoglobin 28.1 pg (25.0-34.0); Mean Corpuscular Hgb Conc 32.5 g/dL (32.0-36.0); Mean Corpuscular Volume 86.3 fL (80.0-100.0); Mean Platelet Volume 10.3 fL (9.4-12.4); Platelet Count 232 K/uL (130-400); RDW Coefficient of Variation 12.8 % (11.5-14.5); RDW Standard Deviation 40.1 fL (36.4-46.3); Red Blood Count 4.31 M/uL (4.63-6.08); White Blood Count 7.83 K/ul (4.8-10.8)
--- NOTE | 2022-07-08 08:04 | Anesthesiology Consultation ---
Date of Service July 08, 2022 Assessment & Plan (1) Encounter for pre-operative examination: Chart Review Chart Review: Acceptable Risk for Surgery and Patient NOT seen in Pre Admission Testing Consults Requested none History Surgery Operation Date: 07/08/22 09:30 Proposed Procedures p Right Partial Great Toe Amputation Hallux - Ruthann Skyla Ortiz DPM Height/Weight Height: 6 ft 5 in Weight: 122.47 kg Allergies Allergy/AdvReac Type Severity Reaction Status Date / Time acetaminophen [From Percocet] Allergy Unknown Verified 07/07/22 22:51 oxycodone AdvReac Intermediate agitation Verified 07/07/22 22:51 Medications Home Medications Medication Instructions Recorded Confirmed Last Taken levothyroxine 50 mcg capsule 50 mcg PO DAILY #90 caps 10/14/19 07/07/22 Unknown aspirin 81 mg tablet,delayed 81 mg PO DAILY 01/14/20 07/07/22 Unknown release (Adult Low Dose Aspirin) atorvastatin 40 mg tablet 40 mg PO DAILY 01/14/20 07/07/22 Unknown coenzyme Q10 100 mg capsule 100 mg PO DAILY 10/05/21 07/07/22 Unknown (CoQ-10) lisinopril 20 mg tablet 20 mg PO DAILY 10/05/21 07/07/22 Unknown metoprolol tartrate 75 mg tablet 75 mg PO BID 10/05/21 07/07/22 Unknown hydrochlorothiazide 25 mg tablet 25 mg PO DAILY #90 tabs 01/13/22 07/07/22 Unknown cholecalciferol (vitamin D3) 50 50 mcg PO DAILY #90 caps 07/05/22 07/07/22 Unknown mcg (2,000 unit) capsule Alive Diabetic Multivitamin 1 tabs PO DAILY 07/07/22 07/07/22 Unknown insulin glargine 100 unit/mL (3 35 unit subcut BID 07/07/22 07/07/22 Unknown mL) subcutaneous pen (Lantus Solostar U-100 Insulin) insulin lispro 100 unit/mL 1 sliding scale dose subcut 07/07/22 07/07/22 Unknown subcutaneous pen USEASDIRECTD Active Medications Generic Name Dose Route Start Last Admin Trade Name Freq PRN Reason Stop Dose Admin Piperacillin Sod/Tazobactam 115 mls @ 28.75 mls/hr 07/08/22 04:00 07/08/22 03:46 Sod 3.375 gm/ Dextrose IV 07/10/22 03:59 28.8 mls/hr Q8H KULWINDER Administration Protocol Sodium Chloride 1,000 mls @ 80 mls/hr 07/08/22 00:47 07/08/22 01:13 Nss 1000ml IV 07/08/22 13:16 80 mls/hr .[id number] KULWINDER Administration Vancomycin HCl 1,000 mg/ 270 mls @ 200 mls/hr 07/08/22 06:00 07/08/22 06:00 Sodium Chloride IV 07/10/22 05:59 200 mls/hr Q24H KULWINDER Administration Insulin Aspart 0 units 07/08/22 06:00 07/08/22 06:33 Insulin Aspart Per Unit SC 08/07/22 05:59 4 units Q6 KULWINDER Administration Levothyroxine Sodium 50 mcg 07/08/22 06:30 07/08/22 05:54 Levothyroxine Sodium 50 Mcg Tablet PO 08/07/22 06:29 50 mcg DAILYBB KULWINDER Administration NPO Date Last Intake of Fluids: 07/07/22 Time Last Intake of Fluids: 23:59 Date Last Intake of Solids: 07/07/22 Time Last Intake of Solids: 23:59 Past Medical History Medical History Accelerated hypertension Calcium kidney stone Diabetes mellitus, type 2 Hodgkin lymphoma Past Family History Family History Other Coronary heart disease Past Surgical History Aortic and Mitral Valve replacement plus CATRACHO ligation by mini thoracotomy at [facility]. 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 He then had a lead dislodgement and returned to the OR for lead replacement. Aortic valve functioning normally on recent echo per [facility] cardiology note 01/19/22. Social History Smoking Status: Never smoker Do You Dip or Chew Tobacco: No Hx Alcohol Use: No Hx Substance Use: No Physical Exam Vital Signs Last Vital Signs Temp 36.9 C 07/08/22 05:47 Pulse 60 07/08/22 05:47 Resp 18 07/08/22 05:47 BP 118/76 07/08/22 05:47 Pulse Ox 96 07/08/22 05:47 O2 Del Method 07/08/22 05:47 Testing Laboratory Results PT 11.4 Seconds (9.0-12.0) 07/07/22 21:07 INR 1.1 (0.9-1.1) 07/07/22 21:07 07/08/22 07/08/22 07/07/22 06:01 00:16 21:14 POC Glucose 239 H 268 H 144 H Electrocardiogram Date: 07/07/22 Findings: + NSR @ (68) Normal ECG.
--- NOTE | 2022-07-08 08:15 | Electrocardiogram Report ---
Test Reason : Blood Pressure : / mmHG Vent. Rate : 068 BPM Atrial Rate : 068 BPM P-R Int : 184 ms QRS Dur : 090 ms QT Int : 380 ms P-R-T Axes : 046 012 060 degrees QTc Int : 404 ms Normal sinus rhythm Normal ECG When compared with ECG of 09-DEC-2015 17:26, No significant change Confirmed by Simon Johnston ([id number]) on 07/08/2022 8:15:30 AM Referred By: Valdemar Fabian Confirmed By:Simon Johnston
[2022-07-08] MEDS: ASPIRIN 81 MG ECTAB PO SCH (08:25)
[2022-07-08] MEDS: amLODIPine BESYLATE 5 MG TAB PO SCH ×2 (08:25→08:28)
[2022-07-08] MEDS: ATORVASTATIN 40 MG TAB PO SCH (08:25)
[2022-07-08] MEDS: METOPROLOL TARTRATE 25 MG TAB PO SCH ×2 (08:25→22:49)
[2022-07-08 08:37] LABS: Albumin Globulin Ratio 1.2 (0.9-2); Albumin Level 3.6 gm/dl (3.4-5.0); BUN Creatinine Ratio 33.6 (10-20); Bilirubin,Total 0.7 mg/dl (0.2-1.0); Calcium 9.2 mg/dl (8.5-10.1); Chol HDL Ratio 4.3 (0-5); Creatinine Clr Calc Pharmacy 41.8 ml/min; Est GFR (African American) 28.8 ml/min; Est GFR (Non-African American) 24.9 ml/min; Globulin 3.1 gm/dl (2.5-4.0); Phosphorus 4.6 mg/dl (2.5-4.9); Potassium 4.4 mmol/L (3.5-5.1); Total Protein 6.7 gm/dl (6.0-8.3)
[2022-07-08 09:39] LABS: Estimated Average Glucose 240 mg/dl
--- NOTE | 2022-07-08 09:46 | History & Physical Bridge Note ---
Date of Service July 08, 2022 History & Physical Bridge Note I have examined the patient, reviewed the History & Physical and in the interval since the performance of the History & Physical I have noted the following changes of clinical significance: no changes noted
[2022-07-08] MEDS ORDERED: fentaNYL citrate 100 MCG/2 ML VIAL ONE (10:08)
[2022-07-08] MEDS ORDERED: PROPOFOL IV EMULSION 10 MG/ML 20 ML VIAL IV ONE ×4 (10:08→11:16)
[2022-07-08] MEDS ORDERED: LIDOCAINE 2% 2 ML VIAL/AMP(20MG/ML) INFIL ONE (10:08)
[2022-07-08] MEDS ORDERED: MIDAZOLAM HCL 1 MG/ML 2ML VIAL ONE (10:09)
[2022-07-08] MEDS ORDERED: BUPIVACAINE 0.25% 30 ML VIAL ONE (10:10)
[2022-07-08] MEDS ORDERED: BUPIVACAINE 0.5 % 5 MG/1 ML MPF 30ML VIAL ONE (10:10)
[2022-07-08] MEDS ORDERED: ATROPINE SULFATE 0.1 MG/ML 10ML SYR IV PRN (10:15)
[2022-07-08] MEDS ORDERED: ePHEDrine sulfate 50 MG/ML AMP IV PRN (10:15)
[2022-07-08] MEDS ORDERED: ONDANSETRON INJ 2 MG/ML 2 ML VIAL ONE (10:37)
--- NOTE | 2022-07-08 10:47 | Pharmacy Report ---
Pharmacy PK ABX Note - Date of Service July 08, 2022 - Assessment and Plan Assessment 61 year old M receiving Vancomycin and Zosyn empirically for treatment of diabetic foot infection. * PMHx significant for T2DM. Recently treated with Keflex. * Undergoing amputation of toe this morning. * Afebrile. Leukocytosis resolved. Renal fxn elevated from baseline. ESR/CRP elevated. Blood cultures pending. Plan Vancomycin * Loading dose: 2500 mg IV x 1 * Maintenance dose: 1000 mg IV every 24 hours * Regimen is predicted to achieve target AUC/BEN of 400-600 mg/L.hr * No level will be ordered unless therapy is to extend beyond 48 hours. Zosyn * 4.5 g IV x 1 followed by 3.375 g IV every 8 hours Pharmacy will continue to follow and will adjust dose/frequency as necessary. Thank you. Pharmacy has transitioned to AUC monitoring for vancomycin. AUC/BEN is the preferred PK/PD target and is associated with decreased risk of nephrotoxicity compared to traditional trough targets.
[2022-07-08] MEDS ORDERED: PHENYLEPHRINE HCL 10 MG/ML VIAL ONE (11:32)
--- NOTE | 2022-07-08 11:45 | Post Operative Brief Note ---
Immediate Post Op Note v1 Date of Surgery July 08, 2022 Pre & Post Diagnosis Operation Date: 07/08/22 09:30 Pre-Op Diagnosis: Diabetic foot infection with osteomyelitis. Post-Op Diagnosis: Diabetic foot infection with osteomyelitis. I identified the patient and participated in the time-out.: Yes Procedure Operation Date: 07/08/22 09:30 Actual Procedures p Incision and debridement of infected bone of the right foot, right great toe amputation. (Right) - Ruthann Ortiz DPM Surgeon Ruthann Ortiz DPM Transportation Economics Teacher none Estimated Blood Loss 5 Findings Consistent with Post-Op Diagnosis necrotic bone of the distal and proximal phalanx of the right hallux. 1st metatarsal head appeared healthy and cartilage intact. Specimens right hallux toe bone-sent to pathology right hallux toe bone-sent to micro for A & A with gram stain Right hallux toe bone inked as proximal margin swab culture of right hallux sent to micro for A & A with gram stain Anesthesia Type MAC Complications none Disposition Accompanied Patient To Recovery: Yes
--- NOTE | 2022-07-08 11:48 | Operative Report ---
Post Operative Report Pre & Post Diagnosis Operation Date: 07/08/22 09:30 Pre-Op Diagnosis: Diabetic foot infection with osteomyelitis. Post-Op Diagnosis: Diabetic foot infection with osteomyelitis. I identified the patient and participated in the time-out.: Yes Procedure Operation Date: 07/08/22 09:30 Actual Procedures p Incision and debridement of infected bone of the right foot, right great toe amputation. (Right) - Ruthann Ortiz DPM Surgeon Ruthann Ortiz DPM Conveyancer none Estimated Blood Loss 5 Findings Consistent with Post-Op Diagnosis necrotic bone of the distal and proximal phalanx. 1st metatarsal head appeared healthy with cartilage intact. Specimens 1. Right hallux toe bone sent to pathology permanent. 2 right hallux toe bone sent to micro for aerobic and anaerobic cultures with gram stain. 3 right hallux toe bone inked proximal margin sent to pathology. 4 swab culture sent to micro for aerobic and anaerobic cultures with gram stain. Anesthesia Type MAC Disposition Accompanied Patient To Recovery: Yes Indications This patient is a 61-year-old male with a diabetic toe ulceration of his right great toe. Patient noticed the ulceration about a month ago and was doing self treatment. States over the past 2 days his blood sugars were above 200 mg/dL and that his right great toe ulcer worsened. States that he noticed purulent drainage erythema edema and calor to his right foot extending up to the level of his ankle. Patient reported mild fevers and malaise without nausea or vomiting. Patient was seen in podiatry clinic yesterday and with findings of acute osteomyelitis on x-ray and associated worsening of his right hallux toe ulceration, probing to bone, with a ascending cellulitis, he was advised to report to the emergency department. It was discussed surgical procedure of the incision and debridement of infected bone. Risks including but not limited to continued infection, chronic pain, transfer lesions, wound dehiscence, failure procedure, need for more proximal amputation, loss of limb, loss of life. Patient states that he understands his risk, benefits, alternatives of surgery and wants to proceed. Description of Procedure Patient was brought into the operating room placed on the operating table in supine position. A timeout was performed in order to correct identify the patient planned procedure and correct side limb. Following monitored anesthesia care a Hayes block was performed utilizing 20 cc of quarter percent Marcaine plain under aseptic technique. The right lower extremity was then scrubbed prepped and draped in usual aseptic manner. The right lower extremity was elevated and the tourniquet was inflated to 250 mmHg. Attention was directed to the right hallux where a fishmouth type incision with a 15 blade was made at the level of the hallux IPJ where the significant acute osteomyelitis changes were noted on x-ray. This incision and excised the ulcer. Deepening the incision down to the level of bone purulent drainage was expressed. Swab culture was taken of the purulent drainage. It was attempted to perform a partial hallux amputation however upon inspecting the bone of the right great toe. It was noted that the bone of the distal and proximal phalanx were found to be soft, friable, acevedo, necrotic in appearance. Therefore the level amputation was performed at the first metatarsal phalangeal joint. The head of the first metatarsal appeared healthy with intact healthy cartilage. The extensor and flexor tendons of the hallux were excised as far as proximally as possible to reduce the possibility of residual infection. At the level of the first metatarsophalangeal joint, it was irrigated with copious amounts of saline. No further purulence could be expressed at this level. The surrounding tissues appeared healthy. Clinically, the extent of the infected bone looks like it was contained to the distal and proximal hallux bones. The remaining specimens were prepared on the sterile back table and sent to pathology and micro. The deep closure consisted of 3-0 Monocryl. The tourniquet was deflated at approximately 39 minutes and immediate hyperemia was noted to the right foot. Skin closure was coapted utilizing 3-0 Prolene in a simple and present to mattress type fashion. The incision was dressed with Betadine soaked Adaptic 4 x 4's ABD pads Kerlix Lawrence bandage and stockinette. The patient tolerated procedure and anesthesia well with all vital signs stable and vascular status intact to the right foot. The patient was transferred to recovery for brief postoperative monitoring and will be transferred back up to the floor for continued monitoring per medicine. The patient should keep the bandage dry clean and intact until evaluation in clinic in 1 week. The patient may ambulate as tolerated in a surgical shoe. And should elevate his right foot at rest. Upon discharge the patient will follow up in clinic in 1 week. I attest to the content of the Intraoperative Record and any orders documented therein. Any exceptions are noted below.
--- NOTE | 2022-07-08 12:51 | Anesthesiology Progress Note ---
Date of Service July 08, 2022 Anesthesia Post Procedure Vital Signs Vital Signs: Temp Pulse Pulse Resp BP BP Pulse Ox 07/08/22 12:30 61 18 118/62 95 07/08/22 12:20 60 18 110/64 95 07/08/22 12:10 60 16 89/50 L 95 07/08/22 12:00 36.2 C L 60 16 87/46 L 100 07/08/22 11:50 60 16 72/46 L 100 07/08/22 11:42 36.1 C L 62 18 86/50 L 99 07/08/22 08:42 36.6 C 62 18 93/73 L 95 07/08/22 05:47 36.9 C 60 18 118/76 96 07/08/22 00:05 36.8 C 89 14 133/73 93 07/07/22 23:43 67 18 103/56 L 94 07/07/22 21:09 68 20 122/67 96 07/07/22 19:16 36.2 C L 90 18 95/61 L 93 O2 Del Method O2 Flow Rate 07/08/22 12:30 Room Air 07/08/22 12:20 Room Air 07/08/22 12:10 Room Air 07/08/22 12:00 Room Air 07/08/22 11:50 Oxymask 5 07/08/22 11:42 Oxymask 5 07/08/22 08:42 Room Air 07/08/22 05:47 Room Air 07/08/22 00:05 Room Air 07/07/22 23:43 Room Air 07/07/22 21:09 Room Air 07/07/22 19:16 Room Air Transfer of Care Handoff Completed per policy Notes Mental Status: alert / awake / arousable Patient Amnestic to Procedure: Yes Nausea / Vomiting: adequately controlled Pain: adequately controlled Airway Patency, RR, SpO2: stable & adequate BP & HR: stable & adequate Hydration State: stable & adequate Anesthetic Complications: no major complications apparent
--- NOTE | 2022-07-08 13:57 | Discharge Summary ---
Date of Service July 08, 2022 Admission HPI Per Admitting Provider 61yo male with a history of IDDM2 and a remote history of Hodgkin lymphoma presents with a several-day history of worsening infection of his right foot, centered around the right great toe. Patient notes the toe was infected about a month ago, which improved with oral antibiotics, but then a few days ago came back and has been worsening. Pain is rated as a 2/10. No fever but patient had a fever a few days ago. Patient denies headache, vision changes, CP, palpitations, SOB, edema, abdominal pain, nausea, vomiting, dysuria, hematochezia, melena, lightheadedness, dizziness, numbness, tingling, weakness, or other symptoms. Denies recent illness and recent travel. Patient has a remote history of chemotherapy. Upon arrival, vitals were unremarkable. BP not elevated, no tachycardia or tachypnea, patient afebrile, spO2 adequate on room air. Initial labs were notable for mild leukocytosis (11.98), mild hyponatremia (132), elevated BUN (84) and creatinine (2.84), and elevated CRP (10.74). No anemia, platelets wnl, no other electrolyte abnormalities, LFTs wnl, covid negative. In the ED, patient was started on vanc/zosyn. Surrogate decision-maker in case of an emergency: Jennifer Richardson (cell: [phone]) Admission Exam Per Admitting Provider Constitutional: well-appearing, no acute distress HEENT: NCAT, no conjunctival injection CV: regular rhythm, no murmur appreciated, extremities well-perfused, trace LE edema Resp: CTABL, no wheezes/rales/rhonchi appreciated, no increased work of breathing GI: soft, nondistended, nontender, BS normoactive Skin: erythema of the distal right foot, right great toe dressed Neuro: alert, oriented, no focal neurologic deficit appreciated Principal Diagnosis diabetic right foot osteomyelitis s/p amputation of right great toe Discharge Exam Constitutional NAD, vitals WNL. Respiratory CTA bilaterally, non labored breathing. No rhonchi, wheezing, or crackles. Cardiovascular RRR. No murmur noted. Musculoskeletal Right foot wound well wrapped from toes to calf Discharge Data Allergies Allergy/AdvReac Type Severity Reaction Status Date / Time acetaminophen [From Percocet] Allergy Unknown Verified 07/07/22 22:51 oxycodone AdvReac Intermediate agitation Verified 07/07/22 22:51 Consultations 07/07/22 19:35 Consult Podiatry Routine 07/07/22 21:18 ED Decision to Admit Stat Procedures Performed Operation Date: 07/08/22 09:30 Actual Procedures p right great toe amputation. (Right) - Ruthann Ortiz DPM s Incision and debridement of infected bone of the right foot, (Right) - Ruthann Ortiz DPM Hospital Course (1) Diabetic infection of right foot: Pt is a 61 yo male with a history of IDDM, HTN, HLD and a remote history of Hodgkin lymphoma presenting with a several-day history of worsening infection of his right foot, mainly his right great toe. Diabetic right great toe infection s/p amputation - Started on vanc/zosyn - NPO overnight pending surgery - WBC 11. 98 upon arrival, down to 7.83 upon d/c - Amputation 07/08 AM - Wound care per podiatry - d/c home with bactrim DS BID [id number] LD - Cr on admission 2.84 (baseline ~1.3) - NSS @ 100mL/hr while in hospital - Cr 2.62 upon d/c IDDM2 - A1c 8.7% (12/2021) - A1c 10.0% today - Patient's home regimen held on admission - Continued BSG checks, sliding-scale insulin, hypoglycemic protocol while hospitalized - Continue home regimen after d/c, f/u with PCP for further management HTN - home regimen held while NPO - restart home meds upon d/c - BP over course of stay were not elevated HLD: - home regimen held while NPO - restart home meds upon d/c - lipid panel normal (2) Diabetes mellitus, type 2: Total Time Total Time Spent Total Time Spent (In Minutes): As per attending attestation Discharge Plan Discharge Items Patient Disposition: Home - Self-Care Reason For Visit: DIABETIC FOOT INFECTION, LD Discharge Diagnosis: Diabetic Right foot infection with osteomyelitis - s/p Right great toe amputation Activity: As commented below Activity Comment: As able with surgical shoe Non-emergency contact: Primary Care Provider Call non-emergency contact if: you have any medication questions, your symptoms worsen, your pain is not controlled and you have a fever Follow-up/Referrals: Valdemar Fabian DO [Primary Care Provider] - 07/27/22 10:40 am Ruthann Ortiz DPM [Surgeon] - 07/15/22 4:00 pm Diet: Carb Consistent or DM2 Addtl Attending Provider Instructions: You were admitted to the hospital for a right great toe osteomyelitis. You recei dorina an amputation of this toe as treatment. You were given one dose of an antibiotic called Bactrim before you were discharged. A discharge summary will be sent to your primary care physician to ensure continuity of care. Please bring this discharge summary with you to your next office appointment so that your provider can review it at that time. Medications: Your medication list has been reviewed and reconciled upon discharge to ensure accuracy and continuity of care. An updated list of all your medications is included with your hospital discharge paperwork. Please review this list closely and make note of any changes to your medications. - You are prescribed an antibiotic called Bactrim DS that you will take twice a day for 10 days. - Otherwise, you can continue all your medications at home that you were taking before you came to the hospital. Follow up appointments: - Make a follow up appointment with your PCP within the next week, especially to discuss management of your diabetes. - Follow up with your utility sales representative within the next week as well. CONTACT YOUR PRIMARY CARE PROVIDER if you experience any of the following: - Difficulty following your treatment plan - Difficulty taking any of your medications CALL 911 OR GO TO THE EMERGENCY DEPARTMENT if you experience any of the following: - Increased pain or redness of your foot/leg - Fevers - Sudden, severe abdominal pain or nausea/vomiting - Severe chest pain or chest pain that radiates to your jaw or arm - Sudden, severe shortness of breath or difficulty breathing Addtl Control Supervisor Provider Instructions: Per your utility sales representative - Keep the bandage dry clean and intact - You may ambulate as tolerated in a surgical shoe - You should elevate your right foot at rest - Follow up in the podiatry clinic in 1 week Pending Studies at Discharge: Yes Studies:: Pathology and culture results from amputation Stand-Alone Forms: My [facility] Riiid, Smoking Cessation Medications and DC Order Prescriptions: New sulfamethoxazole-trimethoprim [Bactrim DS] 800-160 mg tablet 1 tab PO BID 10 Days Qty: 20 0RF Continued levothyroxine 50 mcg capsule 50 mcg PO DAILY Qty: 90 3RF hydrochlorothiazide 25 mg tablet 25 mg PO DAILY Qty: 90 3RF cholecalciferol (vitamin D3) 50 mcg (2,000 unit) capsule 50 mcg PO DAILY Qty: 90 3RF metoprolol tartrate 75 mg tablet 75 mg PO BID lisinopril 20 mg tablet 20 mg PO DAILY coenzyme Q10 [CoQ-10] 100 mg capsule 100 mg PO DAILY aspirin [Adult Low Dose Aspirin] 81 mg tablet,delayed release (DR/EC) 81 mg PO DAILY atorvastatin 40 mg tablet 40 mg PO DAILY Alive Diabetic Multivitamin tablet 1 tabs PO DAILY insulin lispro [Humalog Pen] 100 unit/mL Insulin Pen 1 sliding scale dose SUBCUT USEASDIRECTD insulin glargine [Lantus Solostar U-100 Insulin] 100 unit/mL (3 mL) insulin pen 35 unit SUBCUT BID Discharge Orders: Discharge Order (Routine); Ordered 07/08/22 Ordered By: Ruthann Hubbard/Other Patient Handouts: Nutrition for Wound Healing, Managing Type 2 Diabetes Admission Data Admit Date/Time: 07/07/22 22:05 Attending Provider: Analia Mustafa Admit Provider: Praivn Wills Primary Care Provider: Valdemar Fabian Other Providers: Ruthann Ortiz ; Simran Garrison Resident Activity Tracking Resident Involvement: Resident Care Provided Care Provided: Adult [facility] Medicine
[2022-07-08] MEDS ORDERED: SULFAMETHOXAZOLE/TRIMETHOPRIM DS 800/160MG TAB PO ONE (14:00)
[2022-07-08 16:31] LABS: Creatinine Clr Calc Pharmacy 40.3 ml/min; Est GFR (African American) 27.6 ml/min; Est GFR (Non-African American) 23.8 ml/min
--- NOTE | 2022-07-08 17:06 | Hospitalist Progress Note ---
Date of Service July 08, 2022 Assessment & Plan (1) Diabetic infection of right foot: Plan: Pt is a 61 yo male with a history of IDDM, HTN, HLD and a remote history of Hodgkin lymphoma presenting with a several-day history of worsening infection of his right foot, mainly his right great toe. Diabetic right great toe infection s/p amputation - WBC 11. 98 upon arrival, down to 7.83 - Started on vanc/zosyn (d/c after switching to bactrim DS) - Amputation 07/08 AM - Wound care per podiatry - stable from podiatry standpoint for d/c home - started bactrim DS BID today (will continue upon d/c for 10 total days) LD - Cr on admission 2.84 (baseline ~1.3) - likely sec to acute infection - Cr 2.62 this AM, repeat Cr 2.72 - will hydrate with NS 100 mL/hr and encourage PO intake - d/c tomorrow pending resolution IDDM2 - A1c 8.7% (12/2021) - A1c 10.0% today - Patient's home regimen held on admission - Continued BSG checks, sliding-scale insulin, hypoglycemic protocol HTN - home regimen held while NPO - hold HCTZ/lisinopril d/t LD HLD: - home regimen held while NPO - restarted atorvastatin 40 mg today - lipid panel normal (2) Diabetes mellitus, type 2: (3) Acute osteomyelitis involving ankle and foot: (4) S/P amputation: Plan Diet: DM Fluids: NS 100 mL/hr DVT ppx: SCDs Dispo: med/surg, anticipate d/c tomorrow if LD resolved Admission and Anticipated Discharge Date Admission Date: July 07, 2022 Supervising Physician Co-Signing Physician Notes Resident Physician Supervision Note: I independently interviewed and examined the patient and verified the bhat history and physical, reviewed labs and image studies and agree with resident Dr. Diaz findings and care plan. Subjective Pt is a 61 yo male with a history of IDDM, HTN, HLD and a remote history of Hodgkin lymphoma presenting with a several-day history of worsening infection of his right foot, mainly his right great toe. 07/08/2022: Pt's right great toe was amputated this AM. Pt doing well after surgery. Eating a meal while I spoke with him. Denies chest pain and SOB. Overall, he feels ready to go home. Physical Exam Constitutional: NAD, vitals WNL Respiratory: CTA bilaterally. No rhonchi, wheezing, or crackles. Non labored breathing. Cardiovascular: RRR. No murmur noted. Musculoskeletal: Right foot wound well wrapped. Results & Data Results & Data ([facility]) Vital Signs (Past 12 Hours) Vital Signs Temp Pulse Resp BP Pulse Ox O2 Del Method O2 Flow Rate 07/08/22 16:25 36.4 C L 65 101/65 98 Room Air 07/08/22 14:47 36.3 C L 63 18 90/56 L 98 Room Air 07/08/22 13:52 36.5 C 62 16 101/65 96 Room Air 07/08/22 13:28 36.4 C L 60 16 83/59 L 95 Room Air 07/08/22 12:49 36.4 C L 60 18 112/70 95 Room Air 07/08/22 12:30 61 18 118/62 95 Room Air 07/08/22 12:20 60 18 110/64 95 Room Air 07/08/22 12:10 60 16 89/50 L 95 Room Air 07/08/22 12:00 36.2 C L 60 16 87/46 L 100 Room Air 07/08/22 11:50 60 16 72/46 L 100 Oxymask 5 07/08/22 11:42 36.1 C L 62 18 86/50 L 99 Oxymask 5 07/08/22 08:42 36.6 C 62 18 93/73 L 95 Room Air 07/08/22 05:47 36.9 C 60 18 118/76 96 Room Air Resident Activity Tracking Resident Involvement: Resident Care Provided Care Provided: Adult Hospital Medicine
[2022-07-08] MEDS ORDERED: IBUPROFEN 600 MG TAB PO PRN (21:29)
[2022-07-08] MEDS: SULFAMETHOXAZOLE/TRIMETHOPRIM DS 800/160MG TAB PO SCH (22:58)
[2022-07-09] MEDS ORDERED: SODIUM CHLORIDE 0.9% 1000ML 1,000 ML IV SCH (04:15)
[2022-07-09] MEDS: LEVOTHYROXINE SODIUM 50 MCG TABLET PO SCH (06:56)
[2022-07-09] MEDS: ASPIRIN 81 MG ECTAB PO SCH (09:47)
[2022-07-09] MEDS: SULFAMETHOXAZOLE/TRIMETHOPRIM DS 800/160MG TAB PO SCH (09:47)
[2022-07-09] MEDS: METOPROLOL TARTRATE 25 MG TAB PO SCH (09:48)
[2022-07-09] MEDS: ATORVASTATIN 40 MG TAB PO SCH (09:48)
[2022-07-09] MEDS: amLODIPine BESYLATE 5 MG TAB PO SCH (09:48)
[2022-07-09] MEDS: INSULIN ASPART PER UNIT SC SCH ×2 (09:57→13:40)
--- NOTE | 2022-07-09 11:58 | Discharge Summary ---
Date of Service July 09, 2022 Admission HPI Per Admitting Provider 61yo male with a history of IDDM2 and a remote history of Hodgkin lymphoma presents with a several-day history of worsening infection of his right foot, centered around the right great toe. Patient notes the toe was infected about a month ago, which improved with oral antibiotics, but then a few days ago came back and has been worsening. Pain is rated as a 2/10. No fever but patient had a fever a few days ago. Patient denies headache, vision changes, CP, palpitations, SOB, edema, abdominal pain, nausea, vomiting, dysuria, hematochezia, melena, lightheadedness, dizziness, numbness, tingling, weakness, or other symptoms. Denies recent illness and recent travel. Patient has a remote history of chemotherapy. Upon arrival, vitals were unremarkable. BP not elevated, no tachycardia or tachypnea, patient afebrile, spO2 adequate on room air. Initial labs were notable for mild leukocytosis (11.98), mild hyponatremia (132), elevated BUN (84) and creatinine (2.84), and elevated CRP (10.74). No anemia, platelets wnl, no other electrolyte abnormalities, LFTs wnl, covid negative. In the ED, patient was started on vanc/zosyn. Surrogate decision-maker in case of an emergency: Jennifer Richardson (cell: [phone]) Admission Exam Per Admitting Provider Constitutional: well-appearing, no acute distress HEENT: NCAT, no conjunctival injection CV: regular rhythm, no murmur appreciated, extremities well-perfused, trace LE edema Resp: CTABL, no wheezes/rales/rhonchi appreciated, no increased work of breathing GI: soft, nondistended, nontender, BS normoactive Skin: erythema of the distal right foot, right great toe dressed Neuro: alert, oriented, no focal neurologic deficit appreciated Principal Diagnosis right diabetic foot infection s/p amputation right great toe Discharge Exam Constitutional NAD. Vitals WNL. Respiratory CTA bilaterally. No rhonchi, wheezing, or crackles. Non labored breathing. Cardiovascular RRR. No murmur noted. Musculoskeletal Right foot wound well wrapped. Discharge Data Allergies Allergy/AdvReac Type Severity Reaction Status Date / Time acetaminophen [From Percocet] Allergy Unknown Verified 08/25/22 22:51 oxycodone AdvReac Intermediate agitation Verified 07/07/22 22:51 Consultations 07/07/22 19:35 Consult Podiatry Routine 07/07/22 21:18 ED Decision to Admit Stat Procedures Performed Operation Date: 07/08/22 09:30 Actual Procedures p right great toe amputation. (Right) - Ruthann Ortiz DPM s Incision and debridement of infected bone of the right foot, (Right) - Ruthann Ortiz DPM Hospital Course (1) Diabetic infection of right foot: Pt is a 61 yo male with a history of IDDM, HTN, HLD and a remote history of Hodgkin lymphoma presenting with a several-day history of worsening infection of his right foot, mainly his right great toe. Diabetic right foot infection s/p great toe amputation - WBC 11. 98 upon arrival, down to 7.83 - Started on vanc/zosyn, given dose of bactrim DS, switched to augmentin for d/c - Amputation 07/08 AM - Wound care per podiatry - stable from podiatry standpoint for d/c home - augmentin BID upon d/c (will continue for 10 days) LD - Cr on admission 2.84 (baseline ~1.3) - likely sec to acute infection - Cr 2.62 this AM, repeat Cr 2.72 - hydrated with NS 80 mL/hr and PO hydration encouraged - unable to repeat Cr this AM as pt does not want anymore needle sticks - pt aware that he needs a repeat BMP on Monday (07/11) to ensure his kidneys are recovering - home lisinopril and HCTZ held upon d/c until BMP and f/u appt with PCP or nephro - pt to follow up with PCP and nephro IDDM2 - A1c 8.7% (12/2021) - A1c 10.0% today - Patient's home regimen held on admission - Continued BSG checks, sliding-scale insulin, hypoglycemic protocol while hospitalized - resume home regimen upon d/c - f/u with PCP for further management HTN - home regimen held while NPO - advised pt to hold HCTZ/lisinopril d/t LD for the next few days until the repeat BMP and/or follow up with his PCP/nephro - BP during admission were 100-125/50-60s with the exception of one BP of 154/88 HLD: - home regimen held while NPO - restarted atorvastatin 40 mg 07/08 - continue atorvastatin upon d/c - lipid panel normal (2) Diabetes mellitus, type 2: (3) Acute osteomyelitis involving ankle and foot: (4) S/P amputation: Plan Diet: DM Fluids: encouraged adequate PO hydration at home Dispo: home Total Time Total Time Spent Total Time Spent (In Minutes): 35 minutes -this included seeing the patient myself, reviewing the inpatient and prior outpatient records, and discussing the case with his outpatient aemt. Discharge Plan Discharge Items Patient Disposition: Home - Self-Care Reason For Visit: DIABETIC FOOT INFECTION, LD Discharge Diagnosis: Diabetic Right foot infection with osteomyelitis - s/p Right great toe amputation Activity: As commented below Activity Comment: As able with surgical shoe Non-emergency contact: Primary Care Provider and Fur Blender Call non-emergency contact if: you have any medication questions, your symptoms worsen, your pain is not controlled and you have a fever Follow-up/Referrals: Valdemar Fabian DO [Primary Care Provider] - 07/27/22 10:40 am Ruthann Ortiz DPM [Surgeon] - 07/15/22 4:00 pm Diet: Carb Consistent or DM2 Addtl Attending Provider Instructions: You were admitted to the hospital for a right great foot/toe infection (osteomyelitis). You received an amputation of this toe as treatment. You were treated with two antibiotics before your surgery, vancomycin and zosyn. After your surgery, you were given an antibiotic called bactrim DS. You will be discharged on the antibiotic augmentin. During your hospitalization, your kidneys showed signs of injury most likely due to dehydration. You were given fluids through an IV to help with this. Continue to drink plenty of fluids at home. A discharge summary will be sent to your primary care physician to ensure continuity of care. Please bring this discharge summary with you to your next office appointment so that your provider can review it at that time. Medications: Your medication list has been reviewed and reconciled upon discharge to ensure accuracy and continuity of care. An updated list of all your medications is included with your hospital discharge paperwork. Please review this list closely and make note of any changes to your medications. - You are prescribed an antibiotic called augmentin that you will take twice a day for 10 days. - Do not take your hydrochlorothiazide and lisinopril pills until you can follow up with your primary care or kidney doctor. These medications can affect your kidney function. - Otherwise, you can continue all your medications at home that you were taking before you came to the hospital. Follow up appointments: - Remember to get lab work done on Monday (07/11) or Monday (07/12). This is to ensure that your kidneys are recovering properly. You were given a paper script for this. - Make a follow up appointment with your primary care doctor within the next week, especially to discuss management of your diabetes. - Make/keep appointments with your aemt. - Follow up with your gas meter installer helper within the next week as well. CONTACT YOUR PRIMARY CARE PROVIDER if you experience any of the following: - Difficulty following your treatment plan - Difficulty taking any of your medications CALL 911 OR GO TO THE EMERGENCY DEPARTMENT if you experience any of the following: - Increased pain or redness of your foot/leg - Fevers - Inability to produce urine - Sudden, severe abdominal pain or nausea/vomiting - Severe chest pain or chest pain that radiates to your jaw or arm - Sudden, severe shortness of breath or difficulty breathing Addtl Business Services Vice President Provider Instructions: Per your gas meter installer helper: - Keep the bandage dry clean and intact - You may ambulate as tolerated in a surgical shoe - You should elevate your right foot at rest - Follow up in the podiatry clinic in 1 week Pending Studies at Discharge: Yes Studies:: Sensitivities to culture results Stand-Alone Forms: [facility], Sm[facility] Cess[facility] Medications and DC Order Prescriptions: New amoxicillin-pot clavulanate 875-125 mg tablet 1 tab PO BID Qty: 20 0RF Rx Instructions: Take 1 tablet twice per day for 10 days Continued levothyroxine 50 mcg capsule 50 mcg PO DAILY Qty: 90 3RF cholecalciferol (vitamin D3) 50 mcg (2,000 unit) capsule 50 mcg PO DAILY Qty: 90 3RF metoprolol tartrate 75 mg tablet 75 mg PO BID coenzyme Q10 [CoQ-10] 100 mg capsule 100 mg PO DAILY aspirin [Adult Low Dose Aspirin] 81 mg tablet,delayed release (DR/EC) 81 mg PO DAILY atorvastatin 40 mg tablet 40 mg PO DAILY Alive Diabetic Multivitamin tablet 1 tabs PO DAILY insulin lispro 100 unit/mL Insulin Pen 1 sliding scale dose SUBCUT USEASDIRECTD insulin glargine [Lantus Solostar U-100 Insulin] 100 unit/mL (3 mL) insulin pen 35 unit SUBCUT BID Discontinued hydrochlorothiazide 25 mg tablet 25 mg PO DAILY Qty: 90 3RF lisinopril 20 mg tablet 20 mg PO DAILY Discharge Orders: Discharge Order (Routine); Ordered 07/09/22 Ordered By: Nadia Hubbard/Other Patient Handouts: Nutrition for Wound Healing, Managing Type 2 Diabetes Admission Data Admit Date/Time: 07/07/22 22:05 Attending Provider: Mathew Dunne Admit Provider: Pravin Wills Primary Care Provider: Valdemar Fabian Other Providers: Ruthann Ortiz ; Simran Garrison Other Interventions: Discharge Summary Assessment (RN) Last Done: 07/09/22 11:52 Supervising Physician Co-Signing Physician Notes I also saw the patient and confirmed bhat portions of the history and the physical. I discussed the case with the resident physician. I agree with the impression and plan as noted in the resident discharge summary. The patient strongly desires discharge today. Discussed two approachesthe first to keep him in the hospital, continue (increase) IV hydration, and repeat BMP in AM. The other option, would be discharged home with oral hydration and repeat BMP on Monday. He is making adequate urine; his electrolytes are normal; he is good with follow-up so I think the latter would be a safe option, especially given his reluctance to remain in the hospital. Discharge home today. Repeat labs on Monday. Discussed signs and symptoms for which she would need closer follow-up. He will track his p.o. intake as well as his urine output in terms of quantity and color. Will switch Bactrim to Augmentin. Avoid ibuprofen. Hold hydrochlorothiazide and lisinopril until we get the lab work back next week. Resident Activity Tracking Resident Involvement: Resident Care Provided Care Provided: Adult Hospital Medicine
== END 2022-07-09 13:42 | disposition home or self-care (01) | DRG 617 ==
LOC: ED 18:56 → SUATTDRO 22:05 → 3E 22:05